=== PATIENT | female | born 1945 | race African-American/Black ===

== ENCOUNTER 2016-10-23 12:03 | Emergency (ER) | payer MEDICARE ==
[~2016-10-23] VITALS: Ht 167.6 cm; Wt 100.0 kg
[~2016-10-23 12:03] MED LIST: IBUP400 PO; LISI-366 PO; MAXZ25 PO; POTA-243 PO; TOPR100T15 PO
[2016-10-23 12:06] VITALS: BP 148/96; PULSE 78; RESP 15; TEMP 98.2; O2SAT 98
[2016-10-23] MEDS ORDERED: SODIUM CHLORIDE 0.9% FLUSH 10 ML FLUSH IV FLUSH PRN (12:30)
[2016-10-23] MEDS ORDERED: ACETAMINOPHEN 500 MG CPLT PO ONE (12:30)
[2016-10-23] MEDS ORDERED: TOPR100T PO (13:07)
[2016-10-23] MEDS ORDERED: LISI40TA PO (13:07)
[2016-10-23] MEDS ORDERED: TRIA37.53 PO (13:07)
[2016-10-23] MEDS ORDERED: POTA-243 PO (13:07)
[2016-10-23] MEDS ORDERED: ASPI81TA81 PO (13:07)
[2016-10-23 13:10] LABS: AUTOMATED NEUTROPHIL # 2.9 TH/MM3 (1.8-7.7); BASOPHIL % 0.6 % (0.0-2.0); EOSINOPHIL # 0.2 TH/MM3 (0-0.4); EOSINOPHIL % 4.6 % (0.0-4.0); HEMO FLAGS DIFF FINAL; LYMPH % 29.8 % (9.0-44.0); LYMPHOCYTE # 1.6 TH/MM3 (1.0-4.8); MEAN CELL VOLUME 98.6 FL (80.0-100.0); MEAN CORPUSCULAR HEMOGLOBIN 32.6 PG (27.0-34.0); MEAN CORPUSCULAR HGB CONC 33.1 % (32.0-36.0); MONO % 9.2 % (0.0-8.0); NEUT % 55.8 % (16.0-70.0); PLATELET COUNT 155 TH/MM3 (150-450); RED BLOOD COUNT 3.55 MIL/MM3 (4.00-5.30); RED CELL DISTRIBUTION WIDTH 12.7 % (11.6-17.2); WHITE BLOOD COUNT 5.2 TH/MM3 (4.0-11.0)
[2016-10-23 13:20] LABS: BACTERIA, URINE RARE /hpf; BLOOD, URINE NEG (NEG); COMMENT (UR) CULT NOT INDICATED; CULTURE IF INDICATED CULT NOT INDICATED; GLUCOSE,URINE NEG (NEG); KETONE, URINE NEG (NEG); MUCUS URINE FEW /lpf (OCC); NITRITE,URINE NEG (NEG); SQUAMOUS EPITHELIAL CELL URINE <1 /hpf (0-5); URINE COLOR YELLOW (YELLW/STRAW)
[2016-10-23 13:35] LABS: ALKALINE PHOSPHATASE 74 U/L (45-117); ALT (GPT) 17 U/L (10-53); ANION GAP 6 MEQ/L (5-15); AST (GOT) 24 U/L (15-37); BICARBONATE 29.4 MEQ/L (21.0-32.0); BLOOD UREA NITROGEN 16 MG/DL (7-18); CHLORIDE 103 MEQ/L (98-107); GLOMERULAR FILTRATION RATE 45 ML/MIN (>89); SODIUM (NA) 138 MEQ/L (136-145); TOTAL BILIRUBIN ADULT 0.5 MG/DL (0.2-1.0)
--- NOTE | 2016-10-23 14:09 | RADRPT ---
EXAM DATE/TIME: 10/23/2016 13:39 [facility] COMPARISON: CT ABDOMEN & PELVIS W CONTRAST, July 14, 2012, 0:27. CT ABDOMEN & PELVIS W/O CONTRAST, September 08, 2015, 11:18. INDICATIONS : Right lower quadrant pain for 5 days now. ORAL CONTRAST: No oral contrast ingested. RADIATION DOSE: 8.41 CTDIvol (mGy) MEDICAL HISTORY : Hypertension. Uterine ca, reflux. SURGICAL HISTORY : Tubal ligation. section.Appendectomy. ENCOUNTER: Initial ACUITY: 1 day PAIN SCALE: 5/10 LOCATION: Right lower quadrant TECHNIQUE: Volumetric scanning of the abdomen and pelvis was performed. Using automated exposure control and ad justment of the mA and/or kV according to patient size, radiation dose was kept as low as reasonably achievable to obtain optimal diagnostic quality images. FINDINGS: CT Abdomen: The liver, spleen, pancreas, kidneys, adrenals are unremarkable. There is no evidence for any appreciable pathological adenopathy, free fluid, or bowel obstruction. Slight degree of somewha t linear irregular opacity is seen in the left lung base mostly consistent with scarring. There is pu nctate calcification in the body of the pancreas chronic and benign not changed. CT pelvis: There is soft tissue prominence in the right lower quadrant adjacent to the external iliac vessels blends in with the adjacent bowel. This could be an area of unopacified loop of bowel, howev er mass or adenopathy is difficult to exclude. There are degenerative changes and possible bulging di scs in the lower lumbosacral spine not adequately characterized. There is a tiny amount of fluid in t he cul-de-sac. CONCLUSION: There is a tiny amount of fluid in the cul-de-sac with soft tissue density adjacent t o the right external iliac vessels may be unopacified loops of bowel, however mass or adenopathy is d ifficult to exclude.. Araceli Layton MD on October 23, 2016 at 14:01 Board Certified Radiologist. This report was verified electronically.
--- NOTE | 2016-10-23 14:38 | PD ---
HPI Chief Complaint: Abdominal Pain Time Seen by Provider: 12:20 Travel History International Travel<30 days: No Contact w/Intl Traveler<30days: No Traveled to known affect area: No History of Present Illness HPI Patient is a pleasant 71-year-old female presents emergency department complaint abdominal pain. Patient states she has had 5 days of right lower quadrant abdominal pain. No nausea vomiting or diarrhea. Pain is mild, crampy , intermittent. She's had a previous appendectomy and other abdominal surgeries that she does not recall if the top of her head. Patient denies any urinary symptoms, fevers or chills. PFSH Past Medical History Arthritis: Yes Asthma: Yes Heart Rhythm Problems: No Cancer: Yes (Uterine ) Cardiac Catheterization: No Cardiovascular Problems: Yes (HTN) High Cholesterol: Yes Congestive Heart Failure: No Diabetes: No Diminished Hearing: No Endocrine: No GERD: Yes Genitourinary: No Hepatitis: No Hiatal Hernia: No Hypertension: Yes Immune Disorder: No Medical other: Yes (ARTHRITIS) Musculoskeletal: Yes (arthritis in back ) Neurologic: Yes (BELLS PALSY) Psychiatric: No Reproductive: No Respiratory: No Immunizations Current: No Thyroid Disease: No Menopausal: Yes : 4 Para: 4 Miscarriage: 0 : 0 Dilation and Curettage (D&C): Yes Tubal Ligation: Yes Past Surgical History Abdominal Surgery: Yes (APPY) Appendectomy: Yes Body Medical Devices: none Cardiac Surgery: No Section: Yes (X1) Coronary Artery Bypass Graft: No Ear Surgery: No Endocrine Surgery: No Eye Surgery: No Genitourinary Surgery: No Gynecologic Surgery: Yes (hysterectomy,CSECTION,D&C) Hysterectomy: Yes Joint Replacement: No Oral Surgery: No Pacemaker: No Thoracic Surgery: No Other Surgery: Yes Social History Alcohol Use: No Tobacco Use: No Substance Use: No Allergies-Medications (Allergen,Severity, Reaction): Coded Allergies: Adhesives (Verified Allergy, Severe, RASH, 10/23/16) Codeine (Verified Allergy, Severe, RASH, 10/23/16) Uncoded Allergies: plastic (Adverse Reaction, Severe, Rash, 04/14/16) dressings Reported Meds & Prescriptions Reported Meds & Active Scripts Active Reported Triamterene-Hydrochlorothiazide 37.5-25 Mg Cap 1 Cap PO DAILY Aspir-81 (Aspirin) 81 Mg Tabdr 81 Mg PO DAILY Klor-Con 10 (Potassium Chloride) 10 Meq Tab 10 Meq PO BID Toprol XL (Metoprolol Succinate) 100 Mg Tab 100 Mg PO DAILY Lisinopril 40 Mg Tab 40 Mg PO DAILY Review of Systems Except as stated in HPI: all other systems reviewed are Neg Physical Exam Narrative GENERAL: Pleasant elderly female in no acute distress SKIN: Focused skin assessment warm/dry. HEAD: Normocephalic. EYES: No scleral icterus. No injection or drainage. ENT: No nasal bleeding or discharge. Mucous membranes pink and moist. NECK: Supple CARDIOVASCULAR: Regular rate and rhythm. RESPIRATORY: No accessory muscle use. GASTROINTESTINAL: Abdomen soft, all right lower quadrant abdominal tenderness to palpation around the lateral aspect of previous scar. No palpable mass. No rebound or guarding. No hernia. MUSCULOSKELETAL: Normal gait NEUROLOGICAL: Awake and alert. Normal speech. PSYCHIATRIC: Appropriate mood and affect; insight and judgment normal. Data Data Last Documented VS Vital Signs Date Time Temp Pulse Resp B/P Pulse Ox O2 Delivery O2 Flow Rate FiO2 10/23/16 12:06 98.2 78 15 148/96 98 Orders Basic Metabolic Panel (Bmp) (10/23/16 12:24) Complete Blood Count With Diff (10/23/16 12:24) Comprehensive Metabolic Panel (10/23/16 12:24) Urinalysis - C+S If Indicated (10/23/16 12:24) Ct Abd/Pel W/O Iv Contrast (10/23/16 12:24) Iv Access Insert/Monitor (10/23/16 12:24) Sodium Chloride 0.9% Flush (Ns Flush) (10/23/16 12:30) Acetaminophen (Tylenol) (10/23/16 12:30) Labs Laboratory Tests Test 10/23/16 10/23/16 12:42 12:51 White Blood Count 5.2 TH/MM3 Red Blood Count 3.55 MIL/MM3 Hemoglobin 11.6 GM/DL Hematocrit 35.0 % Mean Corpuscular Volume 98.6 FL Mean Corpuscular Hemoglobin 32.6 PG Mean Corpuscular Hemoglobin 33.1 % Concent Red Cell Distribution Width 12.7 % Platelet Count 155 TH/MM3 Mean Platelet Volume 10.2 FL Neutrophils (%) (Auto) 55.8 % Lymphocytes (%) (Auto) 29.8 % Monocytes (%) (Auto) 9.2 % Eosinophils (%) (Auto) 4.6 % Basophils (%) (Auto) 0.6 % Neutrophils # (Auto) 2.9 TH/MM3 Lymphocytes # (Auto) 1.6 TH/MM3 Monocytes # (Auto) 0.5 TH/MM3 Eosinophils # (Auto) 0.2 TH/MM3 Basophils # (Auto) 0.0 TH/MM3 CBC Comment DIFF FINAL Differential Comment Sodium Level 138 MEQ/L Potassium Level 4.0 MEQ/L Chloride Level 103 MEQ/L Carbon Dioxide Level 29.4 MEQ/L Anion Gap 6 MEQ/L Blood Urea Nitrogen 16 MG/DL Creatinine 1.41 MG/DL Estimat Glomerular Filtration 45 ML/MIN Rate Random Glucose 75 MG/DL Calcium Level 9.1 MG/DL Total Bilirubin 0.5 MG/DL Aspartate Amino Transf 24 U/L (AST/SGOT) Alanine Aminotransferase 17 U/L (ALT/SGPT) Alkaline Phosphatase 74 U/L Total Protein 7.5 GM/DL Albumin 3.3 GM/DL Urine Color YELLOW Urine Turbidity CLEAR Urine pH 7.0 Urine Specific [place] 1.013 Urine Protein NEG mg/dL Urine Glucose (UA) NEG mg/dL Urine Ketones NEG mg/dL Urine Occult Blood NEG Urine Nitrite NEG Urine Bilirubin NEG Urine Urobilinogen LESS THAN 2.0 MG/DL Urine Leukocyte Esterase NEG Urine RBC LESS THAN 1 /hpf Urine WBC 1 /hpf Urine Squamous Epithelial <1 /hpf Cells Urine Bacteria RARE /hpf Urine Mucus FEW /lpf Microscopic Urinalysis Comment CULT NOT INDICATED MDM Medical Decision Making Medical Screen Exam Complete: Yes Emergency Medical Condition: Yes Medical Record Reviewed: Yes Differential Diagnosis 71-year-old female here with complaint of right lower quadrant abdominal pain 5 days. Differential includes abdominal wall strain, hernia, colitis, right sided diverticulitis, ureterolithiasis, UTI. She's had a previous appendectomy. Narrative Course Patient placed on monitor, IV established and blood obtained. CBC, BMP, urinalysis unremarkable. CT abdomen and pelvis with a tiny amount of trace fluid within the cul-de-sac. Soft tissue density adjacent to the right external iliac vessels, maybe on a unopacified loops of bowel however mass or adenopathy cannot be excluded. Patient will be encouraged to follow up with her primary care provider the above findings and will be discharged home. Diagnosis Primary Impression: Abdominal pain Qualified Code: R10.31 - Right lower quadrant abdominal pain Referrals: KYARA TONY M.D. call for appointment Patient Instructions: Abdominal Pain (ED), General Instructions Additional Instructions: Follow-up with primary care provider for the findings found on CT today. Med/Other Pt SpecificInfo: No Change to Meds Disposition: 01 DISCHARGE HOME Condition: Stable Jenelle Ocasio MD Oct 23, 2016 14:38
[2016-10-23 14:41] VITALS: BP 155/72; PULSE 57; RESP 18; O2SAT 98
== END 2016-10-23 15:01 | disposition home or self-care (01) ==
LOC: NEPD 12:03
DX: R10.31 Right lower quadrant pain (principal)
CPT/HCPCS: 74176; 80053; 81001; 85025

== ENCOUNTER 2017-05-01 09:09 | Emergency (ER) | payer MEDICARE ==
[~2017-05-01] VITALS: Ht 170.2 cm; Wt 69.0 kg
[~2017-05-01 09:09] MED LIST changes: +ASPI81TA81 PO; -IBUP400 PO; +KLOR10TA PO; -LISI-366 PO; +LISI40TA PO; -MAXZ25 PO; -POTA-243 PO; +TOPR100T PO; -TOPR100T15 PO; +TRIA37.53 PO
[2017-05-01 09:17] VITALS: BP 155/74; PULSE 74; RESP 16; TEMP 98.4; O2SAT 98
[2017-05-01 09:22] VITALS: BP 155/74; PULSE 23; RESP 16; O2SAT 98
[2017-05-01] MEDS ORDERED: SODIUM CHLORIDE 0.9% FLUSH 10 ML FLUSH IVF PRN (09:30)
[2017-05-01] MEDS ORDERED: ASPIRIN 81 MG CHEW TAB PO ONE (09:30)
--- NOTE | 2017-05-01 09:39 | PD ---
HPI . Palpitations Chief Complaint: Cardiac Complaint Time Seen by Provider: 09:34 Travel History International Travel<30 days: No Contact w/Intl Traveler<30days: No Traveled to known affect area: No History of Present Illness HPI This patient presents with a chief complaint of palpitations. She had an episode of palpitations last night about 7 or 8 PM. The episode was very brief. She felt fine following the episode. She states that she took one of her metoprolol and that the episode stopped shortly after she took the metoprolol. The palpitations recurred this morning and lasted for about 5 minutes. She states that this episode of palpitations stopped immediately after she took an aspirin. She reports previous similar episodes. She states that the episodes are very infrequent and that the last episode was probably 2 years ago. She does not know what might cause the episodes. The episodes are very mild and brief. This patient is very concerned because she has run out of her metoprolol. PFSH Past Medical History Arthritis: Yes Asthma: Yes Heart Rhythm Problems: No Cancer: Yes (Uterine ) Cardiac Catheterization: No Cardiovascular Problems: Yes (HTN) High Cholesterol: Yes Congestive Heart Failure: No Diabetes: No Diminished Hearing: No Endocrine: No GERD: Yes Genitourinary: No Hepatitis: No Hiatal Hernia: No Hypertension: Yes Immune Disorder: No Medical other: Yes (ARTHRITIS) Musculoskeletal: Yes (arthritis in back ) Neurologic: Yes (BELLS PALSY) Psychiatric: No Reproductive: No Respiratory: No Immunizations Current: No Thyroid Disease: No Influenza Vaccination: No ?: Not Menopausal: Yes : 4 Para: 4 Miscarriage: 0 : 0 Dilation and Curettage (D&C): Yes Tubal Ligation: Yes Past Surgical History Abdominal Surgery: Yes (APPY) Appendectomy: Yes Body Medical Devices: none Cardiac Surgery: No Section: Yes (X1) Coronary Artery Bypass Graft: No Ear Surgery: No Endocrine Surgery: No Eye Surgery: No Genitourinary Surgery: No Gynecologic Surgery: Yes (hysterectomy,CSECTION,D&C) Hysterectomy: Yes Joint Replacement: No Oral Surgery: No Pacemaker: No Thoracic Surgery: No Other Surgery: Yes Social History Alcohol Use: No Tobacco Use: No Substance Use: No Allergies-Medications (Allergen,Severity, Reaction): Coded Allergies: adhesive (Unverified Allergy, Severe, RASH, 05/01/17) codeine (Unverified Allergy, Severe, RASH, 05/01/17) Uncoded Allergies: plastic (Adverse Reaction, Severe, Rash, 04/14/16) dressings Reported Meds & Prescriptions Reported Meds & Active Scripts Active Toprol XL (Metoprolol Succinate) 100 Mg Tab 100 Mg PO DAILY Reported Triamterene-Hydrochlorothiazide 37.5-25 Mg Cap 1 Cap PO DAILY Aspir-81 (Aspirin) 81 Mg Tabdr 81 Mg PO DAILY Klor-Con 10 (Potassium Chloride) 10 Meq Tab 10 Meq PO BID Lisinopril 40 Mg Tab 40 Mg PO DAILY Review of Systems Except as stated in HPI: all other systems reviewed are Neg HENT: No: Lightheadedness Cardiovascular: Positive: Palpitations, No: Chest Pain or Discomfort Respiratory: No: Shortness of Breath Gastrointestinal: No: Nausea, Vomiting Psychiatric: Positive: Anxiety Physical Exam Narrative GENERAL: Awake and alert. Tearful. SKIN: warm/dry. HEAD: Normocephalic. Atraumatic. EYES: Pupils equal and round. No scleral icterus. No injection or drainage. ENT: No nasal bleeding or discharge. Mucous membranes pink and moist. NECK: Trachea midline. Full range of motion without pain.. CARDIOVASCULAR: Regular rate and rhythm. Heart sounds are normal. RESPIRATORY: No accessory muscle use. Clear to auscultation. Breath sounds equal bilaterally. GASTROINTESTINAL: Abdomen soft. Nontender. Bowel sounds present. Nondistended. MUSCULOSKELETAL: No obvious deformities. NEUROLOGICAL: Awake and alert. No obvious cranial nerve deficits. Motor grossly within normal limits. Normal speech. PSYCHIATRIC: Appropriate mood and affect; insight and judgment normal. Data Data Last Documented VS Vital Signs Date Time Temp Pulse Resp B/P (MAP) Pulse Ox O2 Delivery O2 Flow Rate FiO2 05/01/17 09:22 23 16 155/74 (101) 98 Room Air 05/01/17 09:17 98.4 Orders Orders Electrocardiogram (05/01/17 09:16) Basic Metabolic Panel (Bmp) (05/01/17 09:16) Complete Blood Count With Diff (05/01/17 09:16) Magnesium (Mg) (05/01/17 09:16) Prothrombin Time / Inr (Pt) (05/01/17 09:16) Act Partial Throm Time (Ptt) (05/01/17 09:16) Troponin I (05/01/17 09:16) Chest, Single Ap (05/01/17 09:16) Ecg Monitoring (05/01/17 09:16) Oximetry (05/01/17 09:16) Aspirin Chew (Aspirin Chew) (05/01/17 09:30) Sodium Chloride 0.9% Flush (Ns Flush) (05/01/17 09:30) Lorazepam Inj (Ativan Inj) (05/01/17 09:45) Metoprolol Succinate Er (Toprol Xl) (05/01/17 10:00) Lorazepam Inj (Ativan Inj) (05/01/17 10:30) Labs Laboratory Tests Test 05/01/17 09:25 White Blood Count 5.7 TH/MM3 Red Blood Count 3.56 MIL/MM3 Hemoglobin 11.8 GM/DL Hematocrit 35.2 % Mean Corpuscular Volume 99.0 FL Mean Corpuscular Hemoglobin 33.3 PG Mean Corpuscular Hemoglobin Concent 33.6 % Red Cell Distribution Width 13.0 % Platelet Count 149 TH/MM3 Mean Platelet Volume 10.6 FL Neutrophils (%) (Auto) 56.9 % Lymphocytes (%) (Auto) 27.8 % Monocytes (%) (Auto) 5.9 % Eosinophils (%) (Auto) 8.1 % Basophils (%) (Auto) 1.3 % Neutrophils # (Auto) 3.3 TH/MM3 Lymphocytes # (Auto) 1.6 TH/MM3 Monocytes # (Auto) 0.3 TH/MM3 Eosinophils # (Auto) 0.5 TH/MM3 Basophils # (Auto) 0.1 TH/MM3 CBC Comment DIFF FINAL Differential Comment Blood Urea Nitrogen 16 MG/DL Creatinine 1.47 MG/DL Random Glucose 94 MG/DL Calcium Level 9.6 MG/DL Magnesium Level 2.0 MG/DL Sodium Level 140 MEQ/L Potassium Level 3.2 MEQ/L Chloride Level 105 MEQ/L Carbon Dioxide Level 28.0 MEQ/L Anion Gap 7 MEQ/L Estimat Glomerular Filtration Rate 43 ML/MIN Troponin I LESS THAN 0.02 NG/ML MDM Medical Decision Making Medical Screen Exam Complete: Yes Emergency Medical Condition: Yes Medical Record Reviewed: Yes (past medical history of hypertension.) Interpretation(s) EKG has a lot of artifact. Sinus rhythm. No ST segment elevation or depression. Differential Diagnosis Differential diagnosis of palpitations includes but is not limited to anxiety, SVT, aVF with RVR, VT, sinus tachycardia, PVCs Narrative Course This patient presents with 2 brief episodes of palpitations, one last night and one this morning. She is currently in a sinus rhythm. She seems very anxious. CBC & BMP Diagram 05/01/17 09:25 Calcium Level 9.6, Magnesium Level 2.0 trop < 0.02 This patient has been in a normal sinus rhythm here. She will be discharged home. Diagnosis Primary Impression: Palpitations Patient Instructions: General Instructions, Heart Palpitations (DC) Med/Other Pt SpecificInfo: Prescription(s) given Scripts Metoprolol Succinate ER 24 HR (Toprol XL) 100 Mg Tab 100 MG PO DAILY, #30 TAB 0 Refills Prov: Stacie Matt MD 05/01/17 Disposition: 01 DISCHARGE HOME Condition: Stable Stacie Matt MD May 01, 2017 09:39
[2017-05-01 09:41] LABS: AUTOMATED NEUTROPHIL # 3.3 TH/MM3 (1.8-7.7); BASOPHIL # 0.1 TH/MM3 (0-0.2); BASOPHIL % 1.3 % (0.0-2.0); EOSINOPHIL # 0.5 TH/MM3 (0-0.4); EOSINOPHIL % 8.1 % (0.0-4.0); HEMATOCRIT 35.2 % (35.0-46.0); HEMOGLOBIN 11.8 GM/DL (11.6-15.3); LYMPH % 27.8 % (9.0-44.0); LYMPHOCYTE # 1.6 TH/MM3 (1.0-4.8); MEAN CORPUSCULAR HEMOGLOBIN 33.3 PG (27.0-34.0); MEAN CORPUSCULAR HGB CONC 33.6 % (32.0-36.0); MEAN PLATELET VOLUME 10.6 FL (7.0-11.0); MONO % 5.9 % (0.0-8.0); MONOCYTE # 0.3 TH/MM3 (0-0.9); NEUT % 56.9 % (16.0-70.0); PLATELET COUNT 149 TH/MM3 (150-450); RED BLOOD COUNT 3.56 MIL/MM3 (4.00-5.30); WHITE BLOOD COUNT 5.7 TH/MM3 (4.0-11.0)
[2017-05-01] MEDS ORDERED: LORazepam 2 MG/ML VIAL IV PUSH ONE (09:45)
[2017-05-01 09:50] LABS: BLOOD UREA NITROGEN 16 MG/DL (7-18); CALCIUM 9.6 MG/DL (8.5-10.1); CHLORIDE 105 MEQ/L (98-107); CREATININE 1.47 MG/DL (0.50-1.00); GLOMERULAR FILTRATION RATE 43 ML/MIN (>89); GLUCOSE,RANDOM 94 MG/DL (74-106); SODIUM (NA) 140 MEQ/L (136-145)
[2017-05-01] MEDS ORDERED: TOPR100T PO (09:50)
--- NOTE | 2017-05-01 09:52 | RADRPT ---
EXAM DATE/TIME: 05/01/2017 09:31 [facility] COMPARISON: CHEST SINGLE AP, July 18, 2015, 21:38. INDICATIONS : Heart palpitations, chest pain since last night. MEDICAL HISTORY : Hypertension. Uterine cancer, reflux. SURGICAL HISTORY : Tubal ligation. section. Appendectomy. ENCOUNTER: Initial ACUITY: 1 day PAIN SCORE: 0/10 LOCATION: Bilateral chest FINDINGS: Left basilar atelectasis is noted. The heart is stable. The pulmonary vascular pattern is normal. The lungs are otherwise clear. Degenerative changes and scoliosis of the thoracic spine are noted. Degenerative changes are also noted involving the shoulders bilaterally. CONCLUSION: 1. Left basilar atelectasis. 2. No alveolar consolidation or pulmonary edema. 3. Degenerative changes and scoliosis of the thoracic spine. Axel Pro MD on May 01, 2017 at 9:38 Board Certified Radiologist. This report was verified electronically.
[2017-05-01 09:55] LABS: TROPONIN I LESS THAN 0.02 NG/ML (0.02-0.05)
[2017-05-01] MEDS ORDERED: METOPROLOL SUCCINATE 50 MG EXTENDED RELEASE TAB PO ONE (10:00)
[2017-05-01 10:29] VITALS: BP 166/75; PULSE 77; RESP 16; O2SAT 100
[2017-05-01] MEDS ORDERED: LORazepam 2 MG/ML VIAL IM ONE (10:30)
--- NOTE | 2017-05-02 20:58 | EKG ---
Date Performed: 05/01/2017 Time Performed: 09:25:16 PTAGE: 71 years EKG: Sinus rhythm Electrical interferences NORMAL ECG NO PREVIOUS TRACING DOCTOR: Hao Garibay Interpretating Date/Time 05/02/2017 20:51:57
== END 2017-05-01 11:00 | disposition home or self-care (01) ==
LOC: NEPC 09:09
DX: R00.2 Palpitations (principal); M19.90 Unspecified osteoarthritis, unspecified site; J45.909 Unspecified asthma, uncomplicated; I10 Essential (primary) hypertension; E78.00 Pure hypercholesterolemia, unspecified; K21.9 Gastro-esophageal reflux disease without esophagitis; Z79.82 Long term (current) use of aspirin; Z79.899 Other long term (current) drug therapy; Z88.5 Allergy status to narcotic agent
CPT/HCPCS: 71010; 80048; 83735; 84484; 85025; 93005; 96372; 99285; J2060

== ENCOUNTER 2017-07-04 10:27 | Emergency (ER) | payer MEDICARE ==
[~2017-07-04] VITALS: Ht 170.2 cm; Wt 89.2 kg
[2017-07-04 10:29] VITALS: BP 173/89; PULSE 89; RESP 16; TEMP 97.7; O2SAT 98
[2017-07-04] MEDS ORDERED: LISI40TA PO (11:07)
[2017-07-04] MEDS ORDERED: METO1TAB43 PO (11:07)
[2017-07-04] MEDS ORDERED: TRIA37.53 PO (11:07)
[2017-07-04] MEDS ORDERED: K-TA10TA PO (11:07)
--- NOTE | 2017-07-04 11:07 | PD ---
HPI Chief Complaint: Cold / Flu Symptoms Time Seen by Provider: 10:48 Travel History International Travel<30 days: No Contact w/Intl Traveler<30days: No Traveled to known affect area: No History of Present Illness HPI 72-year-old female presents to the emergency Department with complaint of feeling like there is something stuck in her throat and is having difficulty clearing her throat. Denies throat pain, difficulty swallowing, unusual drooling. She did wake up this morning with her mouth full of "phlegm." She states she coughed out the phlegm and there was a little bit of blood in her tissue, which has not continued. Denies chest pain, shortness of breath. She denies nasal congestion, ear pain, fever, vomiting. Denies airway edema. Took some cough medicine with some relief of symptoms. Symptoms are mild in severity. It is also requesting medication refills on her medications that she had filled yesterday and cannot find them. She was at her sister's house yesterday and the medications were in her purse. When she went to take them this morning they were not there. Has no other medical complaints. Dr. Smith is primary care provider. History of hypertension. No other modifying factors or associated signs and symptoms. PFSH Past Medical History Arthritis: Yes Asthma: Yes Heart Rhythm Problems: No Cancer: Yes (Uterine ) Cardiac Catheterization: No Cardiovascular Problems: Yes (HTN) High Cholesterol: Yes Congestive Heart Failure: No Diabetes: No Diminished Hearing: No Endocrine: No GERD: Yes Genitourinary: No Hepatitis: No Hiatal Hernia: No Hypertension: Yes Immune Disorder: No Musculoskeletal: Yes (arthritis in back ) Neurologic: Yes (BELLS PALSY) Psychiatric: No Reproductive: No Respiratory: No Immunizations Current: No Thyroid Disease: No ?: Not Menopausal: Yes : 4 Para: 4 Miscarriage: 0 : 0 Dilation and Curettage (D&C): Yes Tubal Ligation: Yes Past Surgical History Abdominal Surgery: Yes (APPY) Appendectomy: Yes Body Medical Devices: none Cardiac Surgery: No Section: Yes (X1) Coronary Artery Bypass Graft: No Ear Surgery: No Endocrine Surgery: No Eye Surgery: No Genitourinary Surgery: No Gynecologic Surgery: Yes (hysterectomy,CSECTION,D&C) Hysterectomy: Yes Joint Replacement: No Oral Surgery: No Pacemaker: No Thoracic Surgery: No Other Surgery: Yes Social History Alcohol Use: No Tobacco Use: No Substance Use: No Allergies-Medications (Allergen,Severity, Reaction): Coded Allergies: adhesive (Unverified Allergy, Severe, RASH, 07/04/17) codeine (Unverified Allergy, Severe, RASH, 07/04/17) Uncoded Allergies: plastic (Adverse Reaction, Severe, Rash, 04/14/16) dressings Reported Meds & Prescriptions Reported Meds & Active Scripts Active Diphenhydramine (Diphenhydramine HCl) 25 Mg Cap 25 Mg PO HS 3 Days [place] Nasal [place] (Sodium Chloride) 0.65% [place] 2 [place] EACH NARE DIRECTED PRN K-Tab (Potassium Chloride) 10 Meq Tab 10 Meq PO BID Lisinopril 40 Mg Tab 40 Mg PO DAILY Triamterene-Hydrochlorothiazide 37.5-25 Mg Cap 1 Cap PO DAILY Metoprolol Succinate ER 24 HR (Metoprolol Succinate) 100 Mg Tab 100 Mg PO DAILY Toprol XL (Metoprolol Succinate) 100 Mg Tab 100 Mg PO DAILY Reported Triamterene-Hydrochlorothiazide 37.5-25 Mg Cap 1 Cap PO DAILY Klor-Con 10 (Potassium Chloride) 10 Meq Tab 10 Meq PO BID Lisinopril 40 Mg Tab 40 Mg PO DAILY Review of Systems Except as stated in HPI: all other systems reviewed are Neg Physical Exam Narrative GENERAL: Well-nourished, well-developed elderly, black female patient, in no acute distress; afebrile, nontoxic-appearing SKIN: Warm and dry. No rash. HEAD: Atraumatic. Normocephalic. EYES: Pupils equal and round. No scleral icterus. No injection or drainage. ENT: Mucosa pink and moist. No erythema or exudates. No uvular edema. No uvular , palatal, or tonsillar deviation. Airway patent. Spitting out clear phlegm on to tissue. EARS: Bilateral pinnae and external canals appear within normal limits. Bilateral tympanic membranes without erythema, dullness or perforation. NECK: Trachea midline. No edema. No lymphadenopathy. CARDIOVASCULAR: Regular rate and rhythm. No murmur appreciated. RESPIRATORY: No accessory muscle use. Clear to auscultation. Breath sounds equal bilaterally. No retractions or tachypnea. GASTROINTESTINAL: Rounded. MUSCULOSKELETAL: No obvious deformities. No clubbing. No cyanosis. No edema. NEUROLOGICAL: Awake and alert. Oriented 3. No obvious cranial nerve deficits. Motor grossly within normal limits. Normal speech. Moves all extremities. 5/5 strength to all extremities. PSYCHIATRIC: Appropriate mood and affect; insight and judgment normal. Data Data Last Documented VS Vital Signs Date Time Temp Pulse Resp B/P (MAP) Pulse Ox O2 Delivery O2 Flow Rate FiO2 07/04/17 10:29 97.7 89 16 173/89 (117) 98 Room Air Orders Orders Soft Tissue Neck (07/04/17 ) Ed Discharge Order (07/04/17 12:11) Metoprolol Succinate Er (Toprol Xl) (07/04/17 12:30) Potassium Chloride (Kcl) (07/04/17 12:30) Triamterene-Hctz 37.5-25 Mg (Dyazide 37. (07/04/17 12:30) MDM Medical Decision Making Medical Screen Exam Complete: Yes Emergency Medical Condition: Yes Medical Record Reviewed: Yes Differential Diagnosis Sensation of foreign body in the throat, postnasal drip, throat irritation, medication refill Narrative Course 72-year-old female with sensation of foreign body in her throat since this morning. Swallow evaluation done at bedside and patient was able to swallow water without choking, regurgitation, coughing. Oropharynx is unremarkable. I discussed patient with Dr. Cerda and he recommends soft tissue x-ray of the neck and he will evaluate the patient. Orders entered. 1206: Dr. Cerda evaluated the patient and recommends nasal spray and Benadryl at bedtime 3 nights. Soft tissue neck x-ray concludes: Soft Tissue Neck X-Ray 07/04/17 0000 Signed Impressions: Service Date/Time: Tuesday, July 04, 2017 11:20 - CONCLUSION: No foreign bodies seen. There is very exuberant anterior marginal osteophytes throughout the cervical spine likely related to DISH. Jono Santillan MD X-ray findings discussed with the patient. Patient provided medication refills for her lost medications. Her morning medications were ordered and administered prior to discharge. Benadryl and [place] nasal spray prescribed for home. Instructed patient to follow up with primary care provider. Patient verbalizes understanding and agreement with treatment plan. Patient is medically cleared and stable for discharge. Discussed reasons to return to the emergency department. Patient agrees with treatment plan. The patients vital signs are stable and the patient is stable for outpatient follow-up and treatment. Patient discharged home, stable and in no acute distress. Diagnosis Primary Impression: Sensation of foreign body in throat Additional Impression: Medication refill Referrals: Primary Care Physician Patient Instructions: General Instructions, Medication Refill, ED Additional Instructions: [place] nasal spray as directed Benadryl as directed at bedtime Follow-up with primary care provider Return to the emergency department immediately with worsening of symptoms Med/Other Pt SpecificInfo: Prescription(s) given Scripts Diphenhydramine (Diphenhydramine) 25 Mg Cap 25 MG PO HS for 3 Days, CAP 0 Refills Prov: Jasmyne Sawant Pankaj SHAFERP 07/04/17 Saline Nasal ([place] Nasal [place]) 0.65% [place] 2 SPRAY EACH NARE DIRECTED Y for NASAL CONGESTION, #1 BOTTLE 0 Refills Prov: JeseJasmyneisi PICKETT 07/04/17 Potassium Chloride ER (K-Tab) 10 Meq Tab 10 MEQ PO BID for Electrolyte Replacement, #60 TAB 0 Refills Prov: EdinsonJasmyne snowden 07/04/17 Lisinopril (Lisinopril) 40 Mg Tab 40 MG PO DAILY for Blood Pressure Management, #30 TAB 0 Refills Prov: Jasmyne Sawant Pankaj SHAFERP 07/04/17 Triamterene-Hydrochlorothiazide (Triamterene-Hydrochlorothiazide) 37.5-25 Mg Cap 1 CAP PO DAILY, #30 CAP 0 Refills Prov: Jasmyne Sawant Pankaj SHAFERP 07/04/17 Metoprolol Succinate ER 24 HR (Metoprolol Succinate ER 24 HR) 100 Mg Tab 100 MG PO DAILY, #30 TAB 0 Refills Prov: Finoa Sawantisi SHAFERP 07/04/17 Disposition: 01 DISCHARGE HOME Condition: Stable Jasmyne Sawant Pankaj PICKETT Jul 04, 2017 11:07
--- NOTE | 2017-07-04 11:41 | RADRPT ---
EXAM DATE/TIME: 07/04/2017 11:20 [facility] COMPARISON: No previous studies available for comparison. INDICATIONS : Throat pain this morning. Patient states she feels like something is stuck in her throat. MEDICAL HISTORY : None. SURGICAL HISTORY : None. ENCOUNTER: Initial ACUITY: 1 day PAIN SCORE: 2/10 LOCATION: throat. FINDINGS: Two view examination of the soft tissues of the neck demonstrates the hypopharyngeal airway to have a grossly normal configuration. The trachea is midline. No radiopaque foreign bodies are seen. There is very prominent anterior marginal osteophytes seen throughout the cervical spine extending up to 1.9 cm anterior to the anterior vertebral body margins. This likely related to exuberant DISH. Th anna marie osteophytes can cause impressions on the posterior hypopharynx and upper esophagus. CONCLUSION: No foreign bodies seen. There is very exuberant anterior marginal osteophytes throughout the cervical spine likely related to DISH. Jono Santillan MD on July 04, 2017 at 11:37 Board Certified Radiologist. This report was verified electronically.
--- NOTE | 2017-07-04 12:05 | PD ---
Data Data Last Documented VS Vital Signs Date Time Temp Pulse Resp B/P (MAP) Pulse Ox O2 Delivery O2 Flow Rate FiO2 07/04/17 12:58 07/04/17 10:29 97.7 89 16 98 Room Air Orders Orders Soft Tissue Neck (07/04/17 ) Ed Discharge Order (07/04/17 12:11) Metoprolol Succinate Er (Toprol Xl) (07/04/17 12:30) Potassium Chloride (Kcl) (07/04/17 12:30) Triamterene-Hctz 37.5-25 Mg (Dyazide 37. (07/04/17 12:30) MDM Medical Record Reviewed: Yes Supervised Visit with FELIX: Yes Narrative Course I, Dr. Cerda, have reviewed the advance practice practitioner's documentation and am in agreement, met with the patient face to face, made the diagnosis, and the medical decision making was done by me. *My assessment and Findings: At home remedies discussed. Patient agreeable with plan. Patient's ready for discharge. Diagnosis Primary Impression: Medication refill Scripts Diphenhydramine (Diphenhydramine) 25 Mg Cap 25 MG PO HS for 3 Days, CAP 0 Refills Prov: Jasmyne Sawant Pankaj SHAFERP 07/04/17 Saline Nasal ([place] Nasal [place]) 0.65% [place] 2 SPRAY EACH NARE DIRECTED Y for NASAL CONGESTION, #1 BOTTLE 0 Refills Prov: Jasmyne Sawant MOMD TEACHER 07/04/17 Potassium Chloride ER (K-Tab) 10 Meq Tab 10 MEQ PO BID for Electrolyte Replacement, #60 TAB 0 Refills Prov: Jasmyne Sawant Pankaj SHAFERP 07/04/17 Lisinopril (Lisinopril) 40 Mg Tab 40 MG PO DAILY for Blood Pressure Management, #30 TAB 0 Refills Prov: Jasmyne Sawant Pankaj SHAFERP 07/04/17 Triamterene-Hydrochlorothiazide (Triamterene-Hydrochlorothiazide) 37.5-25 Mg Cap 1 CAP PO DAILY, #30 CAP 0 Refills Prov: Jasmyne Sawant Pankaj MOM[employer] TEACHER 07/04/17 Metoprolol Succinate ER 24 HR (Metoprolol Succinate ER 24 HR) 100 Mg Tab 100 MG PO DAILY, #30 TAB 0 Refills Prov: Fiona Sawantisi Lira MOMD TEACHER 07/04/17 Disposition: 01 DISCHARGE HOME Condition: Stable Fredy Creda MD Jul 04, 2017 12:05
[2017-07-04] MEDS ORDERED: OCEA0.653 EACH NARE (12:09)
[2017-07-04] MEDS ORDERED: DIPH25CA PO (12:09)
[2017-07-04] MEDS ORDERED: TRIAMTERENE/HCTZ 37.5 MG/25 MG CAP PO ONE (12:30)
[2017-07-04] MEDS ORDERED: POTASSIUM CHLORIDE 10 MEQ CONTROLLED RELEASE TAB PO ONE (12:30)
[2017-07-04] MEDS ORDERED: METOPROLOL SUCCINATE 50 MG EXTENDED RELEASE TAB PO ONE (12:30)
== END 2017-07-04 12:59 | disposition home or self-care (01) ==
LOC: NEPD 10:27
DX: Z76.0 Encounter for issue of repeat prescription (principal); R09.89 Other specified symptoms and signs involving the circulatory and respiratory systems; I10 Essential (primary) hypertension; M19.90 Unspecified osteoarthritis, unspecified site; J45.909 Unspecified asthma, uncomplicated; E78.00 Pure hypercholesterolemia, unspecified; K21.9 Gastro-esophageal reflux disease without esophagitis; Z79.899 Other long term (current) drug therapy; Z88.5 Allergy status to narcotic agent
CPT/HCPCS: 70360; 99283

== ENCOUNTER 2017-07-09 17:15 | Inpatient (IN) | payer MEDICARE ==
[~2017-07-09] VITALS: Ht 170.2 cm; Wt 65.0 kg
[~2017-07-09 17:15] MED LIST changes: -ASPI81TA81 PO; +DIPH25CA PO; +K-TA10TA PO; +METO1TAB43 PO; +OCEA0.653 EACH NARE
[2017-07-09 17:27] VITALS: BP 118/57; PULSE 67; RESP 16; TEMP 97.6; O2SAT 98
[2017-07-09] MEDS ORDERED: SODIUM CHLOR 0.9% 1000 ML INJ 1,000 ML IV ONE (18:02)
--- NOTE | 2017-07-09 18:08 | PD ---
HPI Chief Complaint: Syncope/Near-Syncope Time Seen by Provider: 17:42 Travel History International Travel<30 days: No Contact w/Intl Traveler<30days: No Traveled to known affect area: No History of Present Illness HPI 72-year-old female presents via EMS for evaluation. She reports that prior to arrival he is walking on the hallway in her home when she felt lightheaded and dizzy. She reports that the next thing she remembers she was on the ground but she is uncertain if she truly had a syncopal event or just a presyncopal event. Regardless, the patient is currently complaining of abdominal pain and diarrhea which started this afternoon. She reports generalized abdominal crampy pain which is constant, associated 2 episodes of diarrhea. She denies chest pain or shortness of breath, palpitations, blurred vision, denies fevers or chills, flank pain, dysuria. She has no other complaints at this time. PFSH Past Medical History Arthritis: Yes Asthma: Yes Heart Rhythm Problems: No Cancer: Yes (Uterine ) Cardiac Catheterization: No Cardiovascular Problems: Yes (HTN) High Cholesterol: Yes Congestive Heart Failure: No Diabetes: No Diminished Hearing: No Endocrine: No GERD: Yes Genitourinary: No Hepatitis: No Hiatal Hernia: No Hypertension: Yes Immune Disorder: No Musculoskeletal: Yes (arthritis in back ) Neurologic: Yes (BELLS PALSY) Psychiatric: No Reproductive: No Respiratory: No Immunizations Current: No Thyroid Disease: No Menopausal: Yes : 4 Para: 4 Miscarriage: 0 : 0 Dilation and Curettage (D&C): Yes Tubal Ligation: Yes Past Surgical History Abdominal Surgery: Yes (APPY) Appendectomy: Yes Body Medical Devices: none Cardiac Surgery: No Section: Yes (X1) Coronary Artery Bypass Graft: No Ear Surgery: No Endocrine Surgery: No Eye Surgery: No Genitourinary Surgery: No Gynecologic Surgery: Yes (hysterectomy,CSECTION,D&C) Hysterectomy: Yes Joint Replacement: No Oral Surgery: No Pacemaker: No Thoracic Surgery: No Other Surgery: Yes Social History Alcohol Use: No Tobacco Use: No Substance Use: No Allergies-Medications (Allergen,Severity, Reaction): Coded Allergies: adhesive (Unverified Allergy, Severe, RASH, 07/04/17) codeine (Unverified Allergy, Severe, RASH, 07/04/17) Uncoded Allergies: plastic (Adverse Reaction, Severe, Rash, 04/14/16) dressings Reported Meds & Prescriptions Reported Meds & Active Scripts Active Diphenhydramine (Diphenhydramine HCl) 25 Mg Cap 25 Mg PO HS 3 Days [place] Nasal [place] (Sodium Chloride) 0.65% [place] 2 [place] EACH NARE DIRECTED PRN Toprol XL (Metoprolol Succinate) 100 Mg Tab 100 Mg PO DAILY Reported Triamterene-Hydrochlorothiazide 37.5-25 Mg Cap 1 Cap PO DAILY Klor-Con 10 (Potassium Chloride) 10 Meq Tab 10 Meq PO BID Lisinopril 40 Mg Tab 40 Mg PO DAILY Review of Systems Except as stated in HPI: all other systems reviewed are Neg Physical Exam Narrative GENERAL: Well-nourished female in no acute distress SKIN: Warm and dry. HEAD: Atraumatic. Normocephalic. EYES: Pupils equal and round. No scleral icterus. No injection or drainage. ENT: No nasal bleeding or discharge. Mucous membranes pink and moist. NECK: Trachea midline. No JVD. CARDIOVASCULAR: Regular rate and rhythm. No murmur appreciated. RESPIRATORY: No accessory muscle use. Clear to auscultation. Breath sounds equal bilaterally. GASTROINTESTINAL: Abdomen soft, generalized abdominal tenderness to palpation without guarding. MUSCULOSKELETAL: No obvious deformities. No clubbing. No cyanosis. No edema. NEUROLOGICAL: Awake and alert. No obvious cranial nerve deficits. Motor grossly within normal limits. Normal speech. PSYCHIATRIC: Appropriate mood and affect; insight and judgment normal. Data Data Last Documented VS Vital Signs Date Time Temp Pulse Resp B/P (MAP) Pulse Ox O2 Delivery O2 Flow Rate FiO2 07/09/17 21:15 74 18 150/67 (94) 76 18 149/69 (95) 81 18 131/55 (80) 07/09/17 18:37 93 Room Air 07/09/17 17:27 97.6 Orders Orders Complete Blood Count With Diff (07/09/17 18:02) Comprehensive Metabolic Panel (07/09/17 18:02) Lipase (07/09/17 18:02) Urinalysis - C+S If Indicated (07/09/17 18:02) Iv Access Insert/Monitor (07/09/17 18:02) Ecg Monitoring (07/09/17 18:02) Oximetry (07/09/17 18:02) Sodium Chloride 0.9% Flush (Ns Flush) (07/09/17 18:15) Electrocardiogram (07/09/17 18:02) Magnesium (Mg) (07/09/17 18:02) Ckmb (Isoenzyme) Profile (07/09/17 18:02) Troponin I (07/09/17 18:02) Act Partial Throm Time (Ptt) (07/09/17 18:02) Prothrombin Time / Inr (Pt) (07/09/17 18:02) Ct Brain W/O Iv Contrast(Rout) (07/09/17 18:02) Blood Glucose (07/09/17 18:02) Sodium Chlor 0.9% 1000 Ml Inj (Ns 1000 M (07/09/17 18:02) CKMB (07/09/17 18:50) CKMB% (07/09/17 18:50) Orthostatic Vital Signs (07/09/17 20:06) Ct Abd/Pel W/O Iv Contrast (07/09/17 18:02) Pantoprazole Inj (Protonix Inj) (07/09/17 21:30) Ondansetron Inj (Zofran Inj) (07/09/17 21:30) Place In Observation (07/09/17 ) Code Status (07/09/17 22:31) Vital Signs (Adult) Q4H (07/09/17 22:31) Activity Oob With Assistance (07/09/17 22:31) Diet Heart Healthy (07/10/17 Breakfast) Sodium Chloride 0.9% Flush (Ns Flush) (07/09/17 22:45) Sodium Chloride 0.9% Flush (Ns Flush) (07/10/17 09:00) Acetaminophen (Tylenol) (07/09/17 22:45) Ondansetron Inj (Zofran Inj) (07/09/17 22:45) Basic Metabolic Panel (Bmp) (07/10/17 06:00) Complete Blood Count With Diff (07/10/17 06:00) Electrocardiogram (07/09/17 22:31) Pt Request For Service (07/09/17 22:31) Scd Bilateral/Knee High BEATRIZ.BID (07/09/17 22:31) Naloxone Inj (Narcan Inj) (07/09/17 22:45) Magnesium Hydroxide Liq (Milk Of Magnesi (07/09/17 22:45) Ns + Kcl 20 Meq Inj (Ns + Kcl 20 Meq Inj (07/09/17 22:45) Admit Order (Ed Use Only) (07/09/17 22:35) Labs Laboratory Tests Test 07/09/17 18:50 07/09/17 18:53 White Blood Count 15.6 TH/MM3 Red Blood Count 3.45 MIL/MM3 Hemoglobin 11.7 GM/DL Hematocrit 34.5 % Mean Corpuscular Volume 99.8 FL Mean Corpuscular Hemoglobin 33.8 PG Mean Corpuscular Hemoglobin Concent 33.9 % Red Cell Distribution Width 13.0 % Platelet Count 186 TH/MM3 Mean Platelet Volume 10.9 FL Neutrophils (%) (Auto) 86.0 % Lymphocytes (%) (Auto) 6.7 % Monocytes (%) (Auto) 6.0 % Eosinophils (%) (Auto) 0.9 % Basophils (%) (Auto) 0.4 % Neutrophils # (Auto) 13.4 TH/MM3 Lymphocytes # (Auto) 1.0 TH/MM3 Monocytes # (Auto) 0.9 TH/MM3 Eosinophils # (Auto) 0.1 TH/MM3 Basophils # (Auto) 0.1 TH/MM3 CBC Comment DIFF FINAL Differential Comment Prothrombin Time 10.8 SEC Prothromb Time International Ratio 1.1 RATIO Activated Partial Thromboplast Time 22.2 SEC Blood Urea Nitrogen 23 MG/DL Creatinine 1.84 MG/DL Random Glucose 117 MG/DL Total Protein 7.3 GM/DL Albumin 3.2 GM/DL Calcium Level 9.0 MG/DL Magnesium Level 1.8 MG/DL Alkaline Phosphatase 115 U/L Aspartate Amino Transf (AST/SGOT) 26 U/L Alanine Aminotransferase (ALT/SGPT) 14 U/L Total Bilirubin 0.6 MG/DL Sodium Level 135 MEQ/L Potassium Level 3.8 MEQ/L Chloride Level 103 MEQ/L Carbon Dioxide Level 23.5 MEQ/L Anion Gap 9 MEQ/L Estimat Glomerular Filtration Rate 33 ML/MIN Total Creatine Kinase 192 U/L Creatine Kinase MB 1.6 NG/ML Troponin I LESS THAN 0.02 NG/ML Lipase 75 U/L Urine Color LIGHT-YELLOW Urine Turbidity CLEAR Urine pH 7.0 Urine Specific [place] 1.007 Urine Protein NEG mg/dL Urine Glucose (UA) NEG mg/dL Urine Ketones NEG mg/dL Urine Occult Blood NEG Urine Nitrite NEG Urine Bilirubin NEG Urine Urobilinogen LESS THAN 2.0 MG/DL Urine Leukocyte Esterase NEG Urine WBC 1 /hpf Urine Squamous Epithelial Cells 1 /hpf Urine Bacteria RARE /hpf Microscopic Urinalysis Comment CULT NOT INDICATED MDM Medical Decision Making Medical Screen Exam Complete: Yes Emergency Medical Condition: Yes Medical Record Reviewed: Yes Interpretation(s) EKG sinus rhythm CT brain, abdomen and pelvis no acute abnormalities CBC reveals WBC of 15.6 Differential Diagnosis Dehydration, electrolyte abnormality, aortic dissection, intracranial hemorrhage , arrhythmia, hypoglycemia, symptomatic anemia Narrative Course The patient was placed on ECG monitoring pulse oximetry. Twelve-lead EKG was obtained. Plans for basic lab work, CT brain, abdomen and pelvis. She was given IV fluids. Upon examination the patient feels improved. She has had no additional diarrhea during her hospital stay. Orthostatic vital signs were obtained revealing no significant change and no symptomology change. CBC reveals leukocytosis. CMP does reveal a GFR of 33 which is decreased from her baseline. She does report that she has not been hydrating recently and upon additional questioning she reports that she had one episode of emesis earlier today. Patient will be given Protonix and Zofran. Cardiac enzymes are negative. Urinalysis is unremarkable. 2144: Initially the patient was going to be discharged but upon attempting oral hydration she immediately became nauseous and vomited. She does not feel comfortable going home as she lives alone. She will be admitted. Diagnosis Primary Impression: Dehydration Additional Impressions: Acute renal insufficiency Syncope Nausea and vomiting Admitting Information Admitting Physician Requests: Observation Additional Instructions: Stay well-hydrated and well-nourished. Follow-up closely with primary care physician. Return for any acutely new or worsening symptoms. Med/Other Pt SpecificInfo: No Change to Meds Disposition: 01 DISCHARGE HOME Condition: Stable Lan Cooney Jul 09, 2017 18:08
[2017-07-09] MEDS ORDERED: SODIUM CHLORIDE 0.9% FLUSH 10 ML FLUSH IV FLUSH PRN ×2 (18:15→22:45)
[2017-07-09 18:37] VITALS: BP 137/64; PULSE 74; RESP 17; O2SAT 93
[2017-07-09 19:08] LABS: AUTOMATED NEUTROPHIL # 13.4 TH/MM3 (1.8-7.7); BASOPHIL # 0.1 TH/MM3 (0-0.2); BASOPHIL % 0.4 % (0.0-2.0); EOSINOPHIL # 0.1 TH/MM3 (0-0.4); EOSINOPHIL % 0.9 % (0.0-4.0); HEMATOCRIT 34.5 % (35.0-46.0); HEMOGLOBIN 11.7 GM/DL (11.6-15.3); LYMPH % 6.7 % (9.0-44.0); MEAN CELL VOLUME 99.8 FL (80.0-100.0); MEAN CORPUSCULAR HEMOGLOBIN 33.8 PG (27.0-34.0); MEAN CORPUSCULAR HGB CONC 33.9 % (32.0-36.0); MEAN PLATELET VOLUME 10.9 FL (7.0-11.0); MONOCYTE # 0.9 TH/MM3 (0-0.9); PLATELET COUNT 186 TH/MM3 (150-450); RED BLOOD COUNT 3.45 MIL/MM3 (4.00-5.30); WHITE BLOOD COUNT 15.6 TH/MM3 (4.0-11.0)
[2017-07-09 19:15] LABS: BACTERIA, URINE RARE /hpf; BILIRUBIN, URINE NEG (NEG); BLOOD, URINE NEG (NEG); GLUCOSE,URINE NEG (NEG); KETONE, URINE NEG (NEG); NITRITE,URINE NEG (NEG); SQUAMOUS EPITHELIAL CELL URINE 1 /hpf (0-5); URINE COLOR LIGHT-YELLOW (YELLW/STRAW); URINE LEUKOCYTE ESTERASE NEG (NEG)
[2017-07-09 19:33] LABS: INTERNATIONAL NORMALIZED RATIO 1.1 RATIO; PROTHROMBIN TIME - PATIENT 10.8 SEC (9.8-11.6)
[2017-07-09 19:56] LABS: ALBUMIN 3.2 GM/DL (3.4-5.0); ALKALINE PHOSPHATASE 115 U/L (45-117); ALT (GPT) 14 U/L (10-53); AST (GOT) 26 U/L (15-37); BICARBONATE 23.5 MEQ/L (21.0-32.0); BLOOD UREA NITROGEN 23 MG/DL (7-18); CHLORIDE 103 MEQ/L (98-107); CREATININE 1.84 MG/DL (0.50-1.00); GLOMERULAR FILTRATION RATE 33 ML/MIN (>89); GLUCOSE,RANDOM 117 MG/DL (74-106); LIPASE 75 U/L (73-393); MAGNESIUM 1.8 MG/DL (1.5-2.5); SODIUM (NA) 135 MEQ/L (136-145); TOTAL BILIRUBIN ADULT 0.6 MG/DL (0.2-1.0); TOTAL PROTEIN 7.3 GM/DL (6.4-8.2); TROPONIN I LESS THAN 0.02 NG/ML (0.02-0.05)
--- NOTE | 2017-07-09 21:06 | RADRPT ---
EXAM DATE/TIME: 07/09/2017 20:27 [facility] COMPARISON: No previous studies available for comparison. INDICATIONS : Abdominal pain. ORAL CONTRAST: No oral contrast ingested. RADIATION DOSE: 7.17 CTDIvol (mGy) MEDICAL HISTORY : Hypertension. Chavez's palsy. SURGICAL HISTORY : Hysterectomy. Appendectomy. ENCOUNTER: Initial ACUITY: 1 day PAIN SCALE: Non-responsive LOCATION: abdomen TECHNIQUE: Volumetric scanning of the abdomen and pelvis was performed. Using automated exposure control and ad justment of the mA and/or kV according to patient size, radiation dose was kept as low as reasonably achievable to obtain optimal diagnostic quality images. DICOM format image data is available electro nically for review and comparison. FINDINGS: Lung bases are clear except linear scarring. No acute findings in the liver, spleen, adrenals, kidney s or pancreas. This small hiatal hernia. There is no free fluid. No bowel obstruction. No adenopathy. CONCLUSION: 1. No acute findings on abdomen and pelvic CT. Small hiatal hernia. Postop hysterectomy and appendect wade. Gamaliel Ward MD on July 09, 2017 at 21:00 Board Certified Radiologist. This report was verified electronically.
--- NOTE | 2017-07-09 21:07 | RADRPT ---
EXAM DATE/TIME: 07/09/2017 20:28 [facility] COMPARISON: No previous studies available for comparison. INDICATIONS : Syncopal episode. RADIATION DOSE: 56.35 CTDIvol (mGy) MEDICAL HISTORY : Hypertension. Cardiovascular disease Chavez's palsy. SURGICAL HISTORY : None. ENCOUNTER: Initial ACUITY: 1 day PAIN SCALE: 0/10 LOCATION: cranial TECHNIQUE: Multiple contiguous axial images were obtained of the head. Using automated exposure control and adj ustment of the mA and/or kV according to patient size, radiation dose was kept as low as reasonably a chievable to obtain optimal diagnostic quality images. DICOM format image data is available electro nically for review and comparison. FINDINGS: CEREBRUM: The ventricles are normal for age. No evidence of midline shift, mass lesion, hemorrhage or acute in farction. No extra-axial fluid collections are seen. POSTERIOR FOSSA: The cerebellum and brainstem are intact. The 4th ventricle is midline. The cerebellopontine angle i s unremarkable. EXTRACRANIAL: The visualized portion of the orbits is intact. SKULL: The calvaria is intact. No evidence of skull fracture. CONCLUSION: 1. No acute intracranial abnormalities. Gamaliel Ward MD on July 09, 2017 at 21:04 Board Certified Radiologist. This report was verified electronically.
[2017-07-09 21:15] VITALS: BP_SYST 131; BP_SYST 149; BP_SYST 150; BP_DIAS 55; BP_DIAS 67; BP_DIAS 69; RESP 18
[2017-07-09] MEDS ORDERED: ONDANSETRON HCL 4 MG/2 ML VIAL IV PUSH ONE (21:30)
[2017-07-09] MEDS ORDERED: PANTOPRAZOLE SODIUM 40 MG VIAL IVP ONE (21:30)
[2017-07-09] MEDS ORDERED: NALOXONE HCL 0.4 MG/ML AMP IV PUSH PRN (22:45)
[2017-07-09] MEDS ORDERED: MAGNESIUM HYDROXIDE SUSP 30 ML CUP PO PRN (22:45)
[2017-07-09] MEDS ORDERED: ACETAMINOPHEN 325 MG TAB PO PRN (22:45)
[2017-07-09] MEDS ORDERED: ONDANSETRON HCL 4 MG/2 ML VIAL IVP PRN (22:45)
[2017-07-09 23:00] VITALS: BP 148/78; PULSE 87; RESP 18; O2SAT 100
[2017-07-09] MEDS: NS + KCL 20 MEQ INJ 1,000 ML IV SCH (23:49)
[2017-07-10] VITALS (7 sets, daily range): BP systolic 118–166; BP diastolic 60–72; PULSE 68–106; RESP 15–20; TEMP 96–98.4; O2SAT 93–100
[2017-07-10] MEDS: SODIUM CHLORIDE 0.9% FLUSH 10 ML FLUSH IV FLUSH SCH ×2 (09:00→21:00)
[2017-07-10] MEDS: POTASSIUM CHLORIDE 10 MEQ CONTROLLED RELEASE TAB PO SCH ×2 (09:29→21:11)
[2017-07-10] MEDS: METOPROLOL SUCCINATE 50 MG EXTENDED RELEASE TAB PO SCH (09:29)
--- NOTE | 2017-07-10 10:09 | HHI.HP ---
HPI Service [facility] Hospitalists Primary Care Physician Dennis Simpson M.D. 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 Welsh. Patient initially presented to the emergency department last night after she felt lightheaded and dizzy while walking down her hallway and then fell to the ground. Patient is unsure whether she lost consciousness or not. Patient denies head trauma. Once patient arrived to the emergency department she is complaining of generalized crampy abdominal pain which began on 07/09/2017 associated with 2 episodes of diarrhea and bright red rectal bleeding. Initially patient was going to be discharged from the ER instructed to increase oral hydration and follow-up with PCP. Patient attempted oral hydration she became nauseated and began vomiting. Patient vomited about 6 times yesterday. Patient denies bright red blood in vomitus material or black coffee ground appearance. Patient denies fevers chills shortness of breath or chest pain. Review of Systems Constitutional: COMPLAINS OF: Fatigue, DENIES: Fever, Chills Eyes: DENIES: Blurred vision, Diplopia, Vision loss Respiratory: DENIES: Cough, Sputum production, Shortness of breath Cardiovascular: DENIES: Chest pain, Palpitations, Dyspnea on Exertion Gastrointestinal: COMPLAINS OF: Abdominal pain, BRB per rectum, Diarrhea, Nausea, Vomiting Neurologic: COMPLAINS OF: Poor Balance, DENIES: Abnormal gait, Headache, Localized weakness, Speech Problems Psychiatric: DENIES: Anxiety, Confusion, Depression Past Family Social History Past Medical History arthritis, Chavez's palsy, hypertension, uterine papillary serous carcinoma Past Surgical History BÁRBARA/BSO 2012 Appendectomy section 1982 Colonoscopy 2009 Reported Medications Diphenhydramine (Diphenhydramine HCl) 25 Mg Cap 25 Mg PO HS 3 Days [place] Nasal Maynard (Sodium Chloride) 0.65% Maynard 2 Maynard EACH NARE DIRECTED PRN Toprol XL (Metoprolol Succinate) 100 Mg Tab 100 Mg PO DAILY Triamterene-Hydrochlorothiazide 37.5-25 Mg Cap 1 Cap PO DAILY Klor-Con 10 (Potassium Chloride) 10 Meq Tab 10 Meq PO BID Lisinopril 40 Mg Tab 40 Mg PO DAILY Allergies: Coded Allergies: adhesive (Unverified Allergy, Severe, RASH, 07/04/17) codeine (Unverified Allergy, Severe, RASH, 07/04/17) Uncoded Allergies: plastic (Adverse Reaction, Severe, Rash, 04/14/16) dressings Active Ordered Medications Current Medications Medications (Trade) Dose Ordered Sig/Suhas Route Start Time Stop Time Status Last Admin (NS Flush) 2 ml UNSCH PRN IV FLUSH 07/09/17 22:45 (NS Flush) 2 ml BID IV FLUSH 07/10/17 09:00 (Tylenol) 650 mg Q4H PRN PO 07/09/17 22:45 (Zofran Inj) 4 mg Q6H PRN IVP 07/09/17 22:45 07/10/17 06:54 (Narcan Inj) 0.4 mg UNSCH PRN IV PUSH 07/09/17 22:45 (Milk Of Magnesia Liq) 30 ml Q12H PRN PO 07/09/17 22:45 Potassium Chloride/Sodium Chloride 1,000 ml @ 85 mls/hr [id number] IV 07/09/17 22:45 07/09/17 23:49 (Toprol Xl) 100 mg DAILY PO 07/10/17 09:00 07/10/17 09:29 (KCl) 10 meq BID PO 07/10/17 09:00 07/10/17 09:29 Family History Reviewed and noncontributory Social History Lives alone Denies EtOH use tobacco use or illicit drug use Physical Exam Vital Signs Vital Signs Date Time Temp Pulse Resp B/P (MAP) Pulse Ox O2 Delivery O2 Flow Rate FiO2 07/10/17 07:51 97.9 84 18 151/69 (96) 100 07/10/17 04:00 98.4 89 16 131/61 (84) 99 07/10/17 00:00 97.9 88 16 166/72 (103) 100 07/09/17 23:01 07/09/17 23:00 87 18 148/78 (101) 100 07/09/17 21:15 74 18 150/67 (94) 76 18 149/69 (95) 81 18 131/55 (80) 07/09/17 18:37 74 17 137/64 (88) 93 Room Air 07/09/17 17:27 97.6 67 16 118/57 (77) 98 Physical Exam GENERAL: This is a elderly 72-year-old female patient, in no apparent distress. SKIN: No rashes, ecchymoses or lesions. Cool and dry. HEAD: Atraumatic. Normocephalic. No temporal or scalp tenderness. EYES: Pupils equal round and reactive. Extraocular motions intact. No scleral icterus. No injection or drainage. ENT: Nose without bleeding, purulent drainage or septal hematoma. Throat without erythema, tonsillar hypertrophy or exudate. Uvula midline. Airway patent. NECK: Trachea midline. No JVD or lymphadenopathy. Supple, nontender, no meningeal signs. CARDIOVASCULAR: Regular rate and rhythm without murmurs, gallops, or rubs. RESPIRATORY: Clear to auscultation. Breath sounds equal bilaterally. No wheezes , rales, or rhonchi. GASTROINTESTINAL: Abdomen soft, non-tender, nondistended. No hepato-splenomegaly , or palpable masses. No guarding. MUSCULOSKELETAL: Extremities without clubbing, cyanosis, or edema. No joint tenderness, effusion, or edema noted. No calf tenderness. Negative Homans sign bilaterally. NEUROLOGICAL: Awake and alert. Cranial nerves II through XII intact. Motor and sensory grossly within normal limits. Five out of 5 muscle strength in all muscle groups. Normal speech. Laboratory Laboratory Tests Test 07/09/17 18:50 07/09/17 18:53 White Blood Count 15.6 Red Blood Count 3.45 Hemoglobin 11.7 Hematocrit 34.5 Mean Corpuscular Volume 99.8 Mean Corpuscular Hemoglobin 33.8 Mean Corpuscular Hemoglobin Concent 33.9 Red Cell Distribution Width 13.0 Platelet Count 186 Mean Platelet Volume 10.9 Neutrophils (%) (Auto) 86.0 Lymphocytes (%) (Auto) 6.7 Monocytes (%) (Auto) 6.0 Eosinophils (%) (Auto) 0.9 Basophils (%) (Auto) 0.4 Neutrophils # (Auto) 13.4 Lymphocytes # (Auto) 1.0 Monocytes # (Auto) 0.9 Eosinophils # (Auto) 0.1 Basophils # (Auto) 0.1 CBC Comment DIFF FINAL Differential Comment Prothrombin Time 10.8 Prothromb Time International Ratio 1.1 Activated Partial Thromboplast Time 22.2 Blood Urea Nitrogen 23 Creatinine 1.84 Random Glucose 117 Total Protein 7.3 Albumin 3.2 Calcium Level 9.0 Magnesium Level 1.8 Alkaline Phosphatase 115 Aspartate Amino Transf (AST/SGOT) 26 Alanine Aminotransferase (ALT/SGPT) 14 Total Bilirubin 0.6 Sodium Level 135 Potassium Level 3.8 Chloride Level 103 Carbon Dioxide Level 23.5 Anion Gap 9 Estimat Glomerular Filtration Rate 33 Total Creatine Kinase 192 Creatine Kinase MB 1.6 Troponin I LESS THAN 0.02 Lipase 75 Urine Color LIGHT-YELLOW Urine Turbidity CLEAR Urine pH 7.0 Urine Specific [place] 1.007 Urine Protein NEG Urine Glucose (UA) NEG Urine Ketones NEG Urine Occult Blood NEG Urine Nitrite NEG Urine Bilirubin NEG Urine Urobilinogen LESS THAN 2.0 Urine Leukocyte Esterase NEG Urine WBC 1 Urine Squamous Epithelial Cells 1 Urine Bacteria RARE Microscopic Urinalysis Comment CULT NOT INDICATED Result Diagram: 07/09/17184907/09/[id number] Imaging Last Impressions Head CT 07/09/171801 Signed Impressions: Service Date/Time: Sunday, July 09, 2017 20:28 - CONCLUSION: 1. No acute intracranial abnormalities. Gamaliel Ward MD Abdomen/Pelvis CT 07/09/171801 Signed Impressions: Service Date/Time: Sunday, July 09, 2017 20:27 - CONCLUSION: 1. No acute findings on abdomen and pelvic CT. Small hiatal hernia. Postop hysterectomy and appendectomy. MD Neymar Irwini VTE Risk Assessment Caprini VTE Risk Assessment: No/Low Risk (score <= 1) Caprini Risk Assessment Model Point Value = 1 Point Value = 2 Point Value = 3 Point Value = 5 Age 41-60 Minor surgery BMI > 25 kg/m2 Swollen legs Varicose veins or History of unexplained or recurrent spontaneous Oral contraceptives or hormone replacement Sepsis (< 1 month) Serious lung disease, including pneumonia (< 1 month) Abnormal pulmonary function Acute myocardial infarction Congestive heart failure (< 1 month) History of inflammatory bowel disease Medical patient at bed rest Age 61-74 Arthroscopic surgery Major open surgery (> 45 min) Laparoscopic surgery (> 45 min) Malignancy Confined to bed (> 72 hours) Immobilizing plaster cast Central venous access Age >= 75 History of VTE Family history of VTE Factor V Leiden Prothrombin [id number] Lupus anticoagulant Anticardiolipin antibodies Elevated serum homocysteine Heparin-induced thrombocytopenia Other congenital or acquired thrombophilia Stroke (< 1 month) Elective arthroplasty Hip, pelvis, or leg fracture Acute spinal cord injury (< 1 month) Prophylaxis Regimen Total Risk Factor Score Risk Level Prophylaxis Regimen 0-1 Low Early ambulation 2 Moderate Order ONE of the following: *Sequential Compression Device (SCD) *Heparin 5000 units SQ BID 3-4 Higher Order ONE of the following medications: *Heparin 5000 units SQ TID *Enoxaparin/Lovenox 40 mg SQ daily (WT < 150 kg, CrCl > 30 mL/min) *Enoxaparin/Lovenox 30 mg SQ daily (WT < 150 kg, CrCl > 10-29 mL/min) *Enoxaparin/Lovenox 30 mg SQ BID (WT < 150 kg, CrCl > 30 mL/min) AND/OR *Sequential Compression Device (SCD) 5 or more Highest Order ONE of the following medications: *Heparin 5000 units SQ TID (Preferred with Epidurals) *Enoxaparin/Lovenox 40 mg SQ daily (WT < 150 kg, CrCl > 30 mL/min) *Enoxaparin/Lovenox 30 mg SQ daily (WT < 150 kg, CrCl > 10-29 mL/min) *Enoxaparin/Lovenox 30 mg SQ BID (WT < 150 kg, CrCl > 30 mL/min) AND *Sequential Compression Device (SCD) Assessment and Plan Problem List: (1) GI bleed ICD Codes: K92.2 - Gastrointestinal hemorrhage, unspecified Plan: This a 72-year-old female patient with past medical history which includes arthritis, Chavez's palsy, hypertension, 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 Welsh. Patient initially presented to the emergency department last night after she felt lightheaded and dizzy while walking down her hallway and then fell to the ground. Patient is unsure whether she lost consciousness or not. Patient denies head trauma. Once patient arrived to the emergency department she is complaining of generalized crampy abdominal pain which began on 07/09/2017 associated with 2 episodes of diarrhea and bright red rectal bleeding. Initially patient was going to be discharged from the ER instructed to increase oral hydration and follow-up with PCP. Patient attempted oral hydration she became nauseated and began vomiting. Patient vomited about 6 times yesterday. Patient denies bright red blood in vomitus material or black coffee ground appearance. Patient denies fevers chills shortness of breath or chest pain. Vital signs consistent with orthostatic hypotension BUN 23, creatinine 1.84, assessment GFR 33 Protonix IV hydration GI consult occult stool pending recheck CBC pending (2) Dehydration ICD Codes: E86.0 - Dehydration Status: Acute Plan: See above (3) Nausea and vomiting ICD Codes: R11.2 - Nausea with vomiting, unspecified Status: Acute Plan: Zofran as needed Supportive care IV hydration (4) Abdominal pain ICD Codes: R10.9 - Unspecified abdominal pain Status: Acute Plan: CT abdomen and pelvis reviewed and reveals no acute findings on abdomen and pelvis CT. Small hiatal hernia. Postoperative hysterectomy and appendectomy (5) Acute renal insufficiency ICD Codes: N28.9 - Disorder of kidney and ureter, unspecified Status: Acute Plan: Likely secondary to dehydration/GI bleed IV hydration recheck BMP pending Assessment and Plan Patient examined. Assessment and plan formulated with Korina Swan PA-C. I agree with the above. Pt c/o abdominal pain with rectal bleeding. Case d/w GI Pt to have EGD/Colonoscopy 07/12/17 Korina Swan Jul 10, 2017 10:09 Billy Garcia DO Jul 11, 2017 11:45
[2017-07-10] MEDS ORDERED: LISI-515 PO (11:29)
--- NOTE | 2017-07-10 12:18 | PD.CONS ---
HPI History of Present Illness This is a 72 year old female with hx uterine papillary serous carcinoma who presented to ER after episode of dizziness and subsequent fall. SHe did have some n/v here in ER. Was having diffuse abd pain that started yesterday. She had some loose stool when EMS arrived. Last night she noticed bright red rectal bleeding independent of stool. Says she is having it now. Denies abd pain currently. NO black tarry stool. She had colonoscopy "many moons" ago and can recall no details. Never had EGD. Never had GIB before. PFSH Past Medical History hx uterine papillary carcinoma Past Surgical History hysterectomy Coded Allergies: adhesive (Unverified Allergy, Severe, RASH, 07/04/17) codeine (Unverified Allergy, Severe, RASH, 07/04/17) Uncoded Allergies: plastic (Adverse Reaction, Severe, Rash, 04/14/16) dressings Family History unk Social History denies ETOH no tobacco or illicit drug use Review of Systems Constitutional: DENIES: Fever, Weight loss Endocrine: DENIES: Polydipsia Eyes: DENIES: Blurred vision Ears, nose, mouth, throat: DENIES: Hearing loss Respiratory: DENIES: Cough Cardiovascular: DENIES: Chest pain Gastrointestinal: COMPLAINS OF: Bloody stools, Diarrhea, Nausea, Vomiting, DENIES: Abdominal pain, Black stools, Constipation, Hematemesis Genitourinary: DENIES: Hematuria Musculoskeletal: DENIES: Joint Swelling Integumentary: DENIES: Rash Hematologic/lymphatic: DENIES: Bruising Neurologic: DENIES: Abnormal gait Psychiatric: DENIES: Confusion GI Exam Vitals I&O Vital Signs Date Time Temp Pulse Resp B/P (MAP) Pulse Ox O2 Delivery O2 Flow Rate FiO2 07/10/17 11:45 96.5 73 18 134/60 (84) 100 07/10/17 07:51 97.9 84 18 151/69 (96) 100 07/10/17 04:00 98.4 89 16 131/61 (84) 99 07/10/17 00:00 97.9 88 16 166/72 (103) 100 07/09/17 23:01 07/09/17 23:00 87 18 148/78 (101) 100 07/09/17 21:15 74 18 150/67 (94) 76 18 149/69 (95) 81 18 131/55 (80) 07/09/17 18:37 74 17 137/64 (88) 93 Room Air 07/09/17 17:27 97.6 67 16 118/57 (77) 98 I/O 07/09/17 07/09/17 07/09/17 07/10/17 07/10/17 07/10/17 07:00 15:00 23:00 07:00 15:00 23:00 Intake Total 1090 ml Balance 1090 ml Intake Oral 90 ml IV Total 1000 ml # Voids 2 Imaging Last Impressions Head CT 07/09/171801 Signed Impressions: Service Date/Time: Sunday, July 09, 2017 20:28 - CONCLUSION: 1. No acute intracranial abnormalities. Gamaliel Ward MD Abdomen/Pelvis CT 07/09/171801 Signed Impressions: Service Date/Time: Sunday, July 09, 2017 20:27 - CONCLUSION: 1. No acute findings on abdomen and pelvic CT. Small hiatal hernia. Postop hysterectomy and appendectomy. Gamaliel Ward MD Laboratory Test 07/09/17 18:50 07/09/17 18:53 White Blood Count 15.6 TH/MM3 Red Blood Count 3.45 MIL/MM3 Hemoglobin 11.7 GM/DL Hematocrit 34.5 % Mean Corpuscular Volume 99.8 FL Mean Corpuscular Hemoglobin 33.8 PG Mean Corpuscular Hemoglobin Concent 33.9 % Red Cell Distribution Width 13.0 % Platelet Count 186 TH/MM3 Mean Platelet Volume 10.9 FL Neutrophils (%) (Auto) 86.0 % Lymphocytes (%) (Auto) 6.7 % Monocytes (%) (Auto) 6.0 % Eosinophils (%) (Auto) 0.9 % Basophils (%) (Auto) 0.4 % Neutrophils # (Auto) 13.4 TH/MM3 Lymphocytes # (Auto) 1.0 TH/MM3 Monocytes # (Auto) 0.9 TH/MM3 Eosinophils # (Auto) 0.1 TH/MM3 Basophils # (Auto) 0.1 TH/MM3 CBC Comment DIFF FINAL Differential Comment Prothrombin Time 10.8 SEC Prothromb Time International Ratio 1.1 RATIO Activated Partial Thromboplast Time 22.2 SEC Blood Urea Nitrogen 23 MG/DL Creatinine 1.84 MG/DL Random Glucose 117 MG/DL Total Protein 7.3 GM/DL Albumin 3.2 GM/DL Calcium Level 9.0 MG/DL Magnesium Level 1.8 MG/DL Alkaline Phosphatase 115 U/L Aspartate Amino Transf (AST/SGOT) 26 U/L Alanine Aminotransferase (ALT/SGPT) 14 U/L Total Bilirubin 0.6 MG/DL Sodium Level 135 MEQ/L Potassium Level 3.8 MEQ/L Chloride Level 103 MEQ/L Carbon Dioxide Level 23.5 MEQ/L Anion Gap 9 MEQ/L Estimat Glomerular Filtration Rate 33 ML/MIN Total Creatine Kinase 192 U/L Creatine Kinase MB 1.6 NG/ML Troponin I LESS THAN 0.02 NG/ML Lipase 75 U/L Urine Color LIGHT-YELLOW Urine Turbidity CLEAR Urine pH 7.0 Urine Specific [place] 1.007 Urine Protein NEG mg/dL Urine Glucose (UA) NEG mg/dL Urine Ketones NEG mg/dL Urine Occult Blood NEG Urine Nitrite NEG Urine Bilirubin NEG Urine Urobilinogen LESS THAN 2.0 MG/DL Urine Leukocyte Esterase NEG Urine WBC 1 /hpf Urine Squamous Epithelial Cells 1 /hpf Urine Bacteria RARE /hpf Microscopic Urinalysis Comment CULT NOT INDICATED Physical Examination HEENT: PERRL; normocephalic; atraumatic; no jaundice. Throat is clear. NECK: Neck is supple, no JVD, no lymphadenopathy. CHEST: CTA CARDIAC: RRR ABDOMEN: Soft, nondistended, mild diffuse TTP; no hepatosplenomegaly; bowel sounds are present in all four quadrants. EXTREMITIES: No clubbing, cyanosis, or edema. SKIN: Normal; no rash; no jaundice. 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 PLAN - stool studies - colonoscopy wednesday - monitor HH - transfuse if needed - obtain consent - clears wednesday - NPO after wednesday [place] - [facility] wednesday night - further recs to follow This pt d/w Dr Vincent and this note written on his behalf Terri Prieto Jul 10, 2017 12:18
[2017-07-10] MEDS: PANTOPRAZOLE SODIUM 40 MG VIAL IV PUSH SCH (12:22)
[2017-07-10] MEDS: NS + KCL 20 MEQ INJ 1,000 ML IV SCH (12:24)
--- NOTE | 2017-07-10 12:49 | EKG ---
Date Performed: 07/09/2017 Time Performed: 19:04:28 PTAGE: 72 years EKG: Sinus rhythm NONSPECIFIC T-WAVE ABNORMALITY BORDERLINE ECG WARNING: DATA QUALITY MAY AFFECT INTERPRETATION PREVIOUS TRACING : 05/01/2017 09.25 Since previous tracing, T-waves more flattened shadi laterally. DOCTOR: Donny Stacy Interpretating Date/Time 07/10/2017 12:48:14
--- NOTE | 2017-07-10 12:50 | EKG ---
Date Performed: 07/10/2017 Time Performed: 04:53:19 PTAGE: 72 years EKG: Sinus rhythm NONSPECIFIC T-WAVE ABNORMALITY ABNORMAL ECG PREVIOUS TRACING : 07/09/2017 19.04 Compared to prior tracing no significant change DOCTOR: Donny Stacy Interpretating Date/Time 07/10/2017 12:48:40
[2017-07-10 13:38] LABS: AUTOMATED NEUTROPHIL # 11.8 TH/MM3 (1.8-7.7); BASOPHIL % 0.2 % (0.0-2.0); EOSINOPHIL % 0.1 % (0.0-4.0); HEMATOCRIT 31.8 % (35.0-46.0); HEMOGLOBIN 10.7 GM/DL (11.6-15.3); LYMPH % 7.6 % (9.0-44.0); MEAN CELL VOLUME 99.2 FL (80.0-100.0); MEAN CORPUSCULAR HEMOGLOBIN 33.4 PG (27.0-34.0); MEAN CORPUSCULAR HGB CONC 33.7 % (32.0-36.0); MEAN PLATELET VOLUME 10.4 FL (7.0-11.0); MONO % 5.6 % (0.0-8.0); MONOCYTE # 0.8 TH/MM3 (0-0.9); NEUT % 86.5 % (16.0-70.0); PLATELET COUNT 179 TH/MM3 (150-450); RED BLOOD COUNT 3.21 MIL/MM3 (4.00-5.30); RED CELL DISTRIBUTION WIDTH 13.1 % (11.6-17.2); WHITE BLOOD COUNT 13.7 TH/MM3 (4.0-11.0)
[2017-07-10 13:46] LABS: BICARBONATE 26.2 MEQ/L (21.0-32.0); CALCIUM 9.2 MG/DL (8.5-10.1); CREATININE 1.6 MG/DL (0.50-1.00)
[2017-07-11 00:25] VITALS: BP 129/60; PULSE 73; RESP 20; TEMP 97.3; O2SAT 99
[2017-07-11] MEDS: NS + KCL 20 MEQ INJ 1,000 ML IV SCH (02:13)
[2017-07-11 04:37] VITALS: BP 134/66; PULSE 66; RESP 18; TEMP 98.7; O2SAT 99
[2017-07-11 05:19] LABS: AUTOMATED NEUTROPHIL # 8.4 TH/MM3 (1.8-7.7); BASOPHIL # 0.1 TH/MM3 (0-0.2); BASOPHIL % 0.7 % (0.0-2.0); EOSINOPHIL # 0.1 TH/MM3 (0-0.4); EOSINOPHIL % 1.2 % (0.0-4.0); HEMATOCRIT 29.9 % (35.0-46.0); HEMOGLOBIN 10.1 GM/DL (11.6-15.3); LYMPH % 17.4 % (9.0-44.0); MEAN CELL VOLUME 99.1 FL (80.0-100.0); MEAN CORPUSCULAR HEMOGLOBIN 33.4 PG (27.0-34.0); MEAN CORPUSCULAR HGB CONC 33.7 % (32.0-36.0); MEAN PLATELET VOLUME 10.5 FL (7.0-11.0); MONO % 7.5 % (0.0-8.0); MONOCYTE # 0.9 TH/MM3 (0-0.9); NEUT % 73.2 % (16.0-70.0); PLATELET COUNT 147 TH/MM3 (150-450); RED BLOOD COUNT 3.01 MIL/MM3 (4.00-5.30); WHITE BLOOD COUNT 11.5 TH/MM3 (4.0-11.0)
[2017-07-11 05:33] LABS: BICARBONATE 26.4 MEQ/L (21.0-32.0); CALCIUM 8.8 MG/DL (8.5-10.1); CREATININE 1.44 MG/DL (0.50-1.00)
[2017-07-11 07:38] VITALS: BP 131/60; PULSE 70; RESP 18; TEMP 98.2; O2SAT 99
[2017-07-11] MEDS: SODIUM CHLORIDE 0.9% FLUSH 10 ML FLUSH IV FLUSH SCH ×2 (09:00→20:46)
[2017-07-11] MEDS: METOPROLOL SUCCINATE 50 MG EXTENDED RELEASE TAB PO SCH (09:01)
[2017-07-11] MEDS: POTASSIUM CHLORIDE 10 MEQ CONTROLLED RELEASE TAB PO SCH ×2 (09:01→20:47)
[2017-07-11] MEDS: PANTOPRAZOLE SODIUM 40 MG VIAL IV PUSH SCH (09:02)
[2017-07-11] MEDS ORDERED: POTASSIUM CHLORIDE 20 MEQ CONTROLLED RELEASE TAB PO ONE (09:15)
--- NOTE | 2017-07-11 11:52 | HHI.PR ---
Subjective Remarks Pt denies abdominal pain today. Pt has been tolerating clear liquid diet. Pt denies n/v/d Pt denies further BRB per rectum. Objective Vitals Vital Signs Date Time Temp Pulse Resp B/P (MAP) Pulse Ox O2 Delivery O2 Flow Rate FiO2 07/11/17 07:38 98.2 70 18 131/60 (83) 99 07/11/17 04:37 98.7 66 18 134/66 (88) 99 07/11/17 00:25 97.3 73 20 129/60 (83) 99 07/10/17 20:48 97.6 68 20 153/67 (95) 100 07/10/17 16:56 97.5 68 15 158/70 (99) 99 Result Diagram: 07/11/1743007/11/17430 Imaging Last Impressions Head CT 07/09/171801 Signed Impressions: Service Date/Time: Sunday, July 09, 2017 20:28 - CONCLUSION: 1. No acute intracranial abnormalities. Gamaliel Ward MD Abdomen/Pelvis CT 07/09/171801 Signed Impressions: Service Date/Time: Sunday, July 09, 2017 20:27 - CONCLUSION: 1. No acute findings on abdomen and pelvic CT. Small hiatal hernia. Postop hysterectomy and appendectomy. Gamaliel Ward MD Objective Remarks GENERAL: This is a well-nourished, well-developed patient, in no apparent distress. CARDIOVASCULAR: Regular rate and rhythm without murmurs, gallops, or rubs. RESPIRATORY: Clear to auscultation. Breath sounds equal bilaterally. No wheezes , rales, or rhonchi. GASTROINTESTINAL: Abdomen soft, non-tender, nondistended. Normal active bowel sounds MUSCULOSKELETAL: Extremities without clubbing, cyanosis, or edema. NEURO: Alert & Oriented x4 to person, place, time, situation. 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 Welsh. Patient initially presented to the emergency department last night after she felt lightheaded and dizzy while walking down her hallway and then fell to the ground. Patient is unsure whether she lost consciousness or not. Patient denies head trauma. Once patient arrived to the emergency department she is complaining of generalized crampy abdominal pain which began on 07/09/2017 associated with 2 episodes of diarrhea and bright red rectal bleeding. Initially patient was going to be discharged from the ER instructed to increase oral hydration and follow-up with PCP. Patient attempted oral hydration she became nauseated and began vomiting. Patient vomited about 6 times yesterday. - pt c/o BRB per rectum (07/10/17) - IV protonix - occult stool pending - Hg 11.7 (07/09), 10.7 (07/10), 10.1 (07/11) - Repeat CBC in AM - Pt to have EGD/Colonoscopy (07/12/17) - appreciate input from PT - DVT prophylaxis with SCDs - supportive care - anticipate discharge to home 07/12/17 (2) Dehydration ICD Codes: E86.0 - Dehydration Status: Acute Plan: - See above (3) Nausea and vomiting ICD Codes: R11.2 - Nausea with vomiting, unspecified Status: Resolved Plan: Zofran as needed Supportive care IV hydration (4) Abdominal pain ICD Codes: R10.9 - Unspecified abdominal pain Status: Resolved Plan: CT abdomen and pelvis reviewed and reveals no acute findings on abdomen and pelvis CT. Small hiatal hernia. Postoperative hysterectomy and appendectomy (5) Acute renal insufficiency ICD Codes: N28.9 - Disorder of kidney and ureter, unspecified Status: Acute Plan: - improving Likely secondary to dehydration/GI bleed IV hydration - repeat BMP in AM Billy Garcia DO Jul 11, 2017 11:52
[2017-07-11 12:04] VITALS: BP 129/61; PULSE 57; RESP 16; TEMP 98.2; O2SAT 100
[2017-07-11 15:13] VITALS: BP 122/59; PULSE 58; RESP 18; TEMP 98.3; O2SAT 100
[2017-07-11] MEDS ORDERED: PEG (High)/E-LYTE SOLN 4000 ML BTL PO ONE (16:00)
[2017-07-11] MEDS ORDERED: POVIDONE IODINE 5% (ANTISEPSIS KIT) 4 APPLICATIONS EACH NARE PRN (17:15)
[2017-07-11] MEDS ORDERED: LACTATED RINGER'S 1000 ML IV PRN (17:15)
[2017-07-11] MEDS ORDERED: SODIUM CHLORID 0.9% 500 ML IV PRN (17:15)
[2017-07-11] MEDS ORDERED: CHLORHEXIDINE GLUCONATE 2 % 1 PACK (2 CLOTHS) TOPICAL PRN (17:15)
[2017-07-11] MEDS ORDERED: METOPROLOL TARTRATE 25 MG TAB PO PRN (17:15)
[2017-07-11 20:50] VITALS: BP 164/73; PULSE 73; RESP 18; TEMP 98.5; O2SAT 100
[2017-07-12] VITALS: BP 150/72; PULSE 81; RESP 16; TEMP 97.9; O2SAT 99
[2017-07-12 04:00] VITALS: BP 144/66; PULSE 64; RESP 17; TEMP 97.8; O2SAT 98
[2017-07-12 04:00] LABS: HEMATOCRIT 28.9 % (35.0-46.0); HEMOGLOBIN 9.7 GM/DL (11.6-15.3); MEAN CELL VOLUME 99.6 FL (80.0-100.0); MEAN CORPUSCULAR HEMOGLOBIN 33.5 PG (27.0-34.0); MEAN CORPUSCULAR HGB CONC 33.7 % (32.0-36.0); PLATELET COUNT 129 TH/MM3 (150-450); RED CELL DISTRIBUTION WIDTH 12.8 % (11.6-17.2); WHITE BLOOD COUNT 12.7 TH/MM3 (4.0-11.0)
[2017-07-12 04:20] LABS: BICARBONATE 26.5 MEQ/L (21.0-32.0); CALCIUM 8.5 MG/DL (8.5-10.1); CREATININE 1.29 MG/DL (0.50-1.00)
[2017-07-12 07:53] VITALS: BP 146/65; PULSE 66; RESP 16; TEMP 97.6; O2SAT 99
--- NOTE | 2017-07-12 07:59 | HHI.PR ---
Subjective Remarks Patient resting in bed reports passing bright red blood per rectum during BMs with prep for colonoscopy offers no other complaints at this time Objective Vitals Vital Signs Date Time Temp Pulse Resp B/P (MAP) Pulse Ox O2 Delivery O2 Flow Rate FiO2 07/12/17 07:53 97.6 66 16 146/65 (92) 99 07/12/17 04:00 97.8 64 17 144/66 (92) 98 07/12/17 00:00 97.9 81 16 150/72 (98) 99 07/11/17 20:50 98.5 73 18 164/73 (103) 100 07/11/17 15:13 98.3 58 18 122/59 (80) 100 07/11/17 12:04 98.2 57 16 129/61 (83) 100 Result Diagram: 07/12/17 0342 07/12/17 0342 Other Results Laboratory Tests Test 07/09/17 18:50 07/09/17 18:53 07/10/17 12:56 07/11/17 04:31 White Blood Count 15.6 TH/MM3 13.7 TH/MM3 11.5 TH/MM3 Red Blood Count 3.45 MIL/MM3 3.21 MIL/MM3 3.01 MIL/MM3 Hemoglobin 11.7 GM/DL 10.7 GM/DL 10.1 GM/DL Hematocrit 34.5 % 31.8 % 29.9 % Mean Corpuscular Volume 99.8 FL 99.2 FL 99.1 FL Mean Corpuscular Hemoglobin 33.8 PG 33.4 PG 33.4 PG Mean Corpuscular Hemoglobin Concent 33.9 % 33.7 % 33.7 % Red Cell Distribution Width 13.0 % 13.1 % 13.0 % Platelet Count 186 TH/MM3 179 TH/MM3 147 TH/MM3 Mean Platelet Volume 10.9 FL 10.4 FL 10.5 FL Neutrophils (%) (Auto) 86.0 % 86.5 % 73.2 % Lymphocytes (%) (Auto) 6.7 % 7.6 % 17.4 % Monocytes (%) (Auto) 6.0 % 5.6 % 7.5 % Eosinophils (%) (Auto) 0.9 % 0.1 % 1.2 % Basophils (%) (Auto) 0.4 % 0.2 % 0.7 % Neutrophils # (Auto) 13.4 TH/MM3 11.8 TH/MM3 8.4 TH/MM3 Lymphocytes # (Auto) 1.0 TH/MM3 1.0 TH/MM3 2.0 TH/MM3 Monocytes # (Auto) 0.9 TH/MM3 0.8 TH/MM3 0.9 TH/MM3 Eosinophils # (Auto) 0.1 TH/MM3 0.0 TH/MM3 0.1 TH/MM3 Basophils # (Auto) 0.1 TH/MM3 0.0 TH/MM3 0.1 TH/MM3 CBC Comment DIFF FINAL DIFF FINAL DIFF FINAL Differential Comment Prothrombin Time 10.8 SEC Prothromb Time International Ratio 1.1 RATIO Activated Partial Thromboplast Time 22.2 SEC Blood Urea Nitrogen 23 MG/DL 19 MG/DL 15 MG/DL Creatinine 1.84 MG/DL 1.60 MG/DL 1.44 MG/DL Random Glucose 117 MG/DL 97 MG/DL 85 MG/DL Total Protein 7.3 GM/DL Albumin 3.2 GM/DL Calcium Level 9.0 MG/DL 9.2 MG/DL 8.8 MG/DL Magnesium Level 1.8 MG/DL Alkaline Phosphatase 115 U/L Aspartate Amino Transf (AST/SGOT) 26 U/L Alanine Aminotransferase (ALT/SGPT) 14 U/L Total Bilirubin 0.6 MG/DL Sodium Level 135 MEQ/L 138 MEQ/L 142 MEQ/L Potassium Level 3.8 MEQ/L 3.3 MEQ/L 3.3 MEQ/L Chloride Level 103 MEQ/L 104 MEQ/L 109 MEQ/L Carbon Dioxide Level 23.5 MEQ/L 26.2 MEQ/L 26.4 MEQ/L Anion Gap 9 MEQ/L 8 MEQ/L 7 MEQ/L Estimat Glomerular Filtration Rate 33 ML/MIN 39 ML/MIN 44 ML/MIN Total Creatine Kinase 192 U/L Creatine Kinase MB 1.6 NG/ML Troponin I LESS THAN 0.02 NG/ML Lipase 75 U/L Urine Color LIGHT-YELLOW Urine Turbidity CLEAR Urine pH 7.0 Urine Specific [place] 1.007 Urine Protein NEG mg/dL Urine Glucose (UA) NEG mg/dL Urine Ketones NEG mg/dL Urine Occult Blood NEG Urine Nitrite NEG Urine Bilirubin NEG Urine Urobilinogen LESS THAN 2.0 MG/DL Urine Leukocyte Esterase NEG Urine WBC 1 /hpf Urine Squamous Epithelial Cells 1 /hpf Urine Bacteria RARE /hpf Microscopic Urinalysis Comment CULT NOT INDICATED Test 07/12/17 03:42 White Blood Count 12.7 TH/MM3 Red Blood Count 2.90 MIL/MM3 Hemoglobin 9.7 GM/DL Hematocrit 28.9 % Mean Corpuscular Volume 99.6 FL Mean Corpuscular Hemoglobin 33.5 PG Mean Corpuscular Hemoglobin Concent 33.7 % Red Cell Distribution Width 12.8 % Platelet Count 129 TH/MM3 Mean Platelet Volume 10.0 FL Hematology Comments Blood Urea Nitrogen 13 MG/DL Creatinine 1.29 MG/DL Random Glucose 71 MG/DL Calcium Level 8.5 MG/DL Sodium Level 144 MEQ/L Potassium Level 3.7 MEQ/L Chloride Level 111 MEQ/L Carbon Dioxide Level 26.5 MEQ/L Anion Gap 7 MEQ/L Estimat Glomerular Filtration Rate 49 ML/MIN Imaging Last Impressions Head CT 07/09/171801 Signed Impressions: Service Date/Time: Sunday, July 09, 2017 20:28 - CONCLUSION: 1. No acute intracranial abnormalities. Gamaliel Ward MD Abdomen/Pelvis CT 07/09/171801 Signed Impressions: Service Date/Time: Sunday, July 09, 2017 20:27 - CONCLUSION: 1. No acute findings on abdomen and pelvic CT. Small hiatal hernia. Postop hysterectomy and appendectomy. Gamaliel Ward MD Objective Remarks GENERAL: This is a well-nourished, well-developed patient, in no apparent distress. CARDIOVASCULAR: Regular rate and rhythm RESPIRATORY: Clear to auscultation. Breath sounds equal bilaterally. No wheezes , rales, or rhonchi. GASTROINTESTINAL: Abdomen soft, non-tender, nondistended. Normal active bowel sounds MUSCULOSKELETAL: Extremities without clubbing, cyanosis, or edema. NEURO: Alert & Oriented x4 to person, place, time, situation. 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 Welsh. Patient initially presented to the emergency department last night after she felt lightheaded and dizzy while walking down her hallway and then fell to the ground. Patient is unsure whether she lost consciousness or not. Patient denies head trauma. Once patient arrived to the emergency department she is complaining of generalized crampy abdominal pain which began on 07/09/2017 associated with 2 episodes of diarrhea and bright red rectal bleeding. Initially patient was going to be discharged from the ER instructed to increase oral hydration and follow-up with PCP. Patient attempted oral hydration she became nauseated and began vomiting. Patient vomited about 6 times yesterday. - pt c/o BRB per rectum (07/10/17) - IV protonix - occult stool pending - Hg 11.7 (07/09), 10.7 (07/10), 10.1 (07/11), 9.7 (07/12) - Pt to have EGD/Colonoscopy (07/12/17) - appreciate input from PT. PT recommending home with no PT - DVT prophylaxis with SCDs - supportive care - anticipate discharge to home 07/12/17 if cleared by GI (2) Dehydration ICD Codes: E86.0 - Dehydration Status: Acute Plan: - See above (3) Nausea and vomiting ICD Codes: R11.2 - Nausea with vomiting, unspecified Status: Resolved Plan: Zofran as needed Supportive care IV hydration (4) Abdominal pain ICD Codes: R10.9 - Unspecified abdominal pain Status: Resolved Plan: CT abdomen and pelvis reviewed and reveals no acute findings on abdomen and pelvis CT. Small hiatal hernia. Postoperative hysterectomy and appendectomy (5) Acute renal insufficiency ICD Codes: N28.9 - Disorder of kidney and ureter, unspecified Status: Acute Plan: - improving -Likely secondary to dehydration/GI bleed -IV hydration 07/09 - 07/12 Assessment and Plan Patient examined. Assessment and plan formulated with Korina Swan PA-C. I agree with the above. pt eager for d/c will make sure tolerating diet and ambulating prior to d/c arrange hhc/pt eval. recommended she have family stay with her. f/u GI for pending colon bx's ct a/p neg for colitis. ?c scope mild ischemic colitis...?related to dehydration. kayla/dehydration much improved after ivf. hold her diuretic on d/c and close pcp and GI f/u. Korina Swan Jul 12, 2017 07:58 Donny Schwartz MD Jul 12, 2017 15:00
[2017-07-12] MEDS: SODIUM CHLORIDE 0.9% FLUSH 10 ML FLUSH IV FLUSH SCH (09:00)
--- NOTE | 2017-07-12 09:58 | GIPROC ---
[facility] [address] [facility]. [facility] [place], [address] COLONOSCOPY PROCEDURE REPORT EXAM DATE: 07/12/2017 PATIENT NAME: Yvonne Chowdhury MR #: [id number] BIRTHDATE: 1945 ENDOSCOPIST: Mari Lyles MD ORDER #: [id number] MANAGER MATERIALS MANAGEMENT: Ginette Concepcion RN STATUS: inpatient INDICATIONS: The patient is a 72 yr old female here for a colonoscopy due to rectal bleeding , abdominal pain PROCEDURE PERFORMED: Colonoscopy with biopsy MEDICATIONS: None and Per Anesthesia. PREP QUALITY: good PREP TYPE:Other: ESTIMATED BLOOD LOSS: None CONSENT: The patient understands the risks and benefits of the procedure and understands that these risks include, but are not limited to: sedation, allergic reaction, infection, perforation and/or bleeding. Alternative means of evaluation and treatment include, among others: physical exam, x-rays, and/or surgical intervention. The patient elects to proceed with this endoscopic procedure. medical equipment was checked for proper function. Hand hygiene and appropriate measures for infection prevention was taken. After the risks, benefits and alternatives of the procedure were thoroughly explained, Informed consent was verified, confirmed and timeout was successfully executed by the treatment team. A digital exam revealed decreased sphincter tone and revealed external hemorrhoids The Pentax [id number] endoscope was introduced through the anus and advanced to the cecum, which was identified by both the appendix and ileocecal valve. The instrument was then slowly withdrawn as the colon was fully examined. COLON FINDINGS: Colitis involving descending, sigmoid, suggestive of ischemic colitis diminutive polyp cecum-cold biopsy with complete removal biopsies from ascending -random, descending and sigmoid from areas of colitis. Retroflexed views revealed internal hemorrhoids and Retroflexed views revealed small internal hemorrhoids The scope was then completely withdrawn from the patient and the procedure terminated. PROCEDURE WITHDRAWAL TIME:6minutes ADVERSE EVENTS: There were no complications. IMPRESSIONS: 1. Colitis involving descending, sigmoid, suggestive of ischemic colitis diminutive polyp cecum-cold biopsy with complete removal biopsies from ascending -random, descending and sigmoid from areas of colitis 2. Retroflexed views revealed internal hemorrhoids 3. Retroflexed views revealed small internal hemorrhoids 4. Revealed decreased sphincter tone 5. Revealed external hemorrhoids RECOMMENDATIONS: 1. Await biopsy results. Biopsy results will not be ready for 7-10 days. If you don't hear from us in two weeks, call our office for results. 2. Benefiber 2 tsp daily 3. Probiotics from any [employer] or health food store 4. Advance diet-soft ok to [place] home from [facility] 4 weeks RECALL: Return 1 year Colonoscopy Mari Lyles MD eSigned: Mari Lyles MD 07/12/2017 9:58 AM cc: PATIENT NAME: Yvonne Chowdhury MR#: [id number]
[2017-07-12] MEDS: POTASSIUM CHLORIDE 10 MEQ CONTROLLED RELEASE TAB PO SCH (10:20)
[2017-07-12] MEDS: METOPROLOL SUCCINATE 50 MG EXTENDED RELEASE TAB PO SCH (10:21)
[2017-07-12] MEDS: PANTOPRAZOLE SODIUM 40 MG VIAL IV PUSH SCH (10:24)
[2017-07-12 12:00] VITALS: BP 118/67; PULSE 68; RESP 16; TEMP 98.9; O2SAT 100
--- NOTE | 2017-07-12 14:10 | HHI.FF ---
Face to Face Verification Diagnosis: (1) Syncope (2) Diarrhea (3) GI bleed (4) Dehydration Physical Therapy Order: Evaluate and Treat, Improve ambulation, Strength and gait training Home Health Nursing Order: Medical education Signs/symptoms of disease process Nursing assessment with vital signs Chief Pilot Order: To Evaluate: Living conditions/environment, Support services Order: To Provide: Long range planning, Community services I have seen patient Yvonne Chowdhury on 07/12/17. My clinical findings support the need for the requested home health care services because: Limited ability to care for self Need for psychosocial assistance I certify that my clinical findings support that this patient is homebound because: Impaired cognitive ability/safety Need for psychosocial assistance Korina Swan Jul 12, 2017 14:10
--- NOTE | 2017-07-12 14:16 | HHI.DS ---
Discharge Summary Admission Date Jul 11, 2017 at 09:11 Discharge Date: Jul 12, 2017 Admitting Diagnosis nausea and vomiting, acute renal insufficiency, syncope (1) GI bleed ICD Codes: K92.2 - Gastrointestinal hemorrhage, unspecified (2) Dehydration ICD Codes: E86.0 - Dehydration Status: Acute (3) Nausea and vomiting ICD Codes: R11.2 - Nausea with vomiting, unspecified Status: Resolved (4) Abdominal pain ICD Codes: R10.9 - Unspecified abdominal pain Status: Resolved (5) Acute renal insufficiency ICD Codes: N28.9 - Disorder of kidney and ureter, unspecified Status: Acute Consultants Dr. 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 Welsh. Patient initially presented to the emergency department last night after she felt lightheaded and dizzy while walking down her hallway and then fell to the ground. Patient is unsure whether she lost consciousness or not. Patient denies head trauma. Once patient arrived to the emergency department she is complaining of generalized crampy abdominal pain which began on 07/09/2017 associated with 2 episodes of diarrhea and bright red rectal bleeding. Initially patient was going to be discharged from the ER instructed to increase oral hydration and follow-up with PCP. Patient attempted oral hydration she became nauseated and began vomiting. Patient vomited about 6 times yesterday. Patient denies bright red blood in vomitus material or black coffee ground appearance. Patient denies fevers chills shortness of breath or chest pain. CBC/BMP: 07/12/17 0342 07/12/17 0342 Significant Findings Laboratory Tests Test 07/09/17 18:50 07/09/17 18:53 07/10/17 12:56 07/11/17 04:31 White Blood Count 15.6 TH/MM3 (4.0-11.0) 13.7 TH/MM3 (4.0-11.0) 11.5 TH/MM3 (4.0-11.0) Red Blood Count 3.45 MIL/MM3 (4.00-5.30) 3.21 MIL/MM3 (4.00-5.30) 3.01 MIL/MM3 (4.00-5.30) Hematocrit 34.5 % (35.0-46.0) 31.8 % (35.0-46.0) 29.9 % (35.0-46.0) Neutrophils (%) (Auto) 86.0 % (16.0-70.0) 86.5 % (16.0-70.0) 73.2 % (16.0-70.0) Lymphocytes (%) (Auto) 6.7 % (9.0-44.0) 7.6 % (9.0-44.0) Neutrophils # (Auto) 13.4 TH/MM3 (1.8-7.7) 11.8 TH/MM3 (1.8-7.7) 8.4 TH/MM3 (1.8-7.7) Activated Partial Thromboplast Time 22.2 SEC (24.3-30.1) Blood Urea Nitrogen 23 MG/DL (7-18) 19 MG/DL (7-18) Creatinine 1.84 MG/DL (0.50-1.00) 1.60 MG/DL (0.50-1.00) 1.44 MG/DL (0.50-1.00) Random Glucose 117 MG/DL (74-106) Albumin 3.2 GM/DL (3.4-5.0) Sodium Level 135 MEQ/L (136-145) Estimat Glomerular Filtration Rate 33 ML/MIN (>89) 39 ML/MIN (>89) 44 ML/MIN (>89) Troponin I LESS THAN 0.02 NG/ML Urine Bacteria RARE /hpf (NONE) Hemoglobin 10.7 GM/DL (11.6-15.3) 10.1 GM/DL (11.6-15.3) Potassium Level 3.3 MEQ/L (3.5-5.1) 3.3 MEQ/L (3.5-5.1) Platelet Count 147 TH/MM3 (150-450) Chloride Level 109 MEQ/L (98-107) Test 07/12/17 03:42 White Blood Count 12.7 TH/MM3 (4.0-11.0) Red Blood Count 2.90 MIL/MM3 (4.00-5.30) Hemoglobin 9.7 GM/DL (11.6-15.3) Hematocrit 28.9 % (35.0-46.0) Platelet Count 129 TH/MM3 (150-450) Creatinine 1.29 MG/DL (0.50-1.00) Random Glucose 71 MG/DL (74-106) Chloride Level 111 MEQ/L (98-107) Estimat Glomerular Filtration Rate 49 ML/MIN (>89) Imaging Last Impressions Head CT 07/09/171801 Signed Impressions: Service Date/Time: Sunday, July 09, 2017 20:28 - CONCLUSION: 1. No acute intracranial abnormalities. Gamaliel Ward MD Abdomen/Pelvis CT 07/09/171801 Signed Impressions: Service Date/Time: Sunday, July 09, 2017 20:27 - CONCLUSION: 1. No acute findings on abdomen and pelvic CT. Small hiatal hernia. Postop hysterectomy and appendectomy. Gamaliel Ward MD PE at Discharge GENERAL: This is a well-nourished, well-developed patient, in no apparent distress. CARDIOVASCULAR: Regular rate and rhythm RESPIRATORY: Clear to auscultation. Breath sounds equal bilaterally. No wheezes , rales, or rhonchi. GASTROINTESTINAL: Abdomen soft, non-tender, nondistended. Normal active bowel sounds MUSCULOSKELETAL: Extremities without clubbing, cyanosis, or edema. NEURO: Alert & Oriented x4 to person, place, time, situation. 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 Welsh. Patient initially presented to the emergency department last night after she felt lightheaded and dizzy while walking down her hallway and then fell to the ground. Patient is unsure whether she lost consciousness or not. Patient denies head trauma. Once patient arrived to the emergency department she is complaining of generalized crampy abdominal pain which began on 07/09/2017 associated with 2 episodes of diarrhea and bright red rectal bleeding. Initially patient was going to be discharged from the ER instructed to increase oral hydration and follow-up with PCP. Patient attempted oral hydration she became nauseated and began vomiting. Patient vomited about 6 times yesterday. - pt c/o BRB per rectum (07/10/17) - IV protonix - occult stool pending - Hg 11.7 (07/09), 10.7 (07/10), 10.1 (07/11), 9.7 (07/12) - Pt to have EGD/Colonoscopy (07/12/17) - appreciate input from PT. PT recommending home with no PT - DVT prophylaxis with SCDs - supportive care - Colonoscopy 07/12/[address] Lyles: 1. Colitis involving descending, sigmoid, suggestive of ischemic colitis diminutive polyp cecum-cold biopsy with complete removal biopsies from ascending -random, descending and sigmoid from areas of colitis 2. Retroflexed views revealed internal hemorrhoids 3. Retroflexed views revealed small internal hemorrhoids 4. Revealed decreased sphincter tone 5. Revealed external hemorrhoids RECOMMENDATIONS: 1. Await biopsy results. Biopsy results will not be ready for 7-10 days. If you don't hear from us in two weeks, call our office for results. 2. Benefiber 2 tsp daily 3. Probiotics from any [facility] or [employer] food store 4. Advance diet-soft ok to [place] home from [facility] 4 weeks RECALL: Return 1 year Colonoscopy Dehydration - See above Nausea and vomiting Zofran as needed Supportive care IV hydration Abdominal pain CT abdomen and pelvis reviewed and reveals no acute findings on abdomen and pelvis CT. Small hiatal hernia. Postoperative hysterectomy and appendectomy Acute renal insufficiency - improving -Likely secondary to dehydration/GI bleed -IV hydration 07/09 - 07/12 Pt Condition on Discharge: Stable Discharge Disposition: Disch w/ Home Health Serv Discharge Instructions DIET: Follow Instructions for: Soft Diet, High Fiber Diet Activities you can perform: Regular-No Restrictions Follow up Referrals: Gastroenterology - 4 Weeks with Mari Lyles MD PCP Follow-up - [address] Simpson Continued Medications: Metoprolol Succinate ER 24 HR (Toprol XL) 100 Mg Tab 100 MG PO DAILY, #30 TAB 0 Refills Potassium Chloride ER (Klor-Con 10) 10 Meq Tab 10 MEQ PO BID for Electrolyte Replacement, #60 TAB 0 Refills Saline Nasal (Banner Nasal [place]) 0.65% [place] 2 SPRAY EACH NARE DIRECTED PRN for NASAL CONGESTION, #1 BOTTLE 0 Refills Discontinued Medications: Diphenhydramine (Diphenhydramine) 25 Mg Cap 25 MG PO HS for 3 Days, CAP 0 Refills Lisinopril (Lisinopril) 40 Mg Tab 40 MG PO DAILY for Blood Pressure Management, #30 TAB 0 Refills Triamterene-Hydrochlorothiazide (Triamterene-Hydrochlorothiazide) 37.5-25 Mg Cap 1 CAP PO DAILY, #30 CAP 0 Refills Korina Swan Jul 12, 2017 14:16
[2017-07-12 15:28] VITALS: BP 117/64; PULSE 63; RESP 16; TEMP 97.7; O2SAT 99
== END 2017-07-12 16:26 | disposition home or self-care (01) | DRG 394 ==
LOC: NED 17:15 → NEDA 22:36 → NEPGCP 07-10 00:08 → OBSVTOIN 07-11 09:11
PROVIDERS: ADMIT Hospitalist; ATTEND Hospitalist
PROC: 0DBN8ZX Excision of Sigmoid Colon, Via Natural or Artificial Opening Endoscopic, Diagnostic (ICD-10-PCS; 2017-07-12)
PROC: 0DBM8ZX Excision of Descending Colon, Via Natural or Artificial Opening Endoscopic, Diagnostic (ICD-10-PCS; 2017-07-12)
PROC: 0DBH8ZX Excision of Cecum, Via Natural or Artificial Opening Endoscopic, Diagnostic (ICD-10-PCS; 2017-07-12)
PROC: 0DBK8ZX Excision of Ascending Colon, Via Natural or Artificial Opening Endoscopic, Diagnostic (ICD-10-PCS; principal; 2017-07-12 09:16)
DX: K55.039 Acute (reversible) ischemia of large intestine, extent unspecified (principal); N17.9 Acute kidney failure, unspecified; E86.0 Dehydration; I10 Essential (primary) hypertension; I95.1 Orthostatic hypotension; K44.9 Diaphragmatic hernia without obstruction or gangrene; K64.8 Other hemorrhoids; K64.4 Residual hemorrhoidal skin tags; K63.5 Polyp of colon; K21.9 Gastro-esophageal reflux disease without esophagitis; M46.90 Unspecified inflammatory spondylopathy, site unspecified; Z85.42 Personal history of malignant neoplasm of other parts of uterus; Z88.5 Allergy status to narcotic agent; Z90.5 Acquired absence of kidney
CPT/HCPCS: 70450; 74176; 80048; 80053; 81001; 82550; 82552; 83690; 83735; 84484; 85025; 85027; 85610; 85730; 88305; 93005; 96361; 96374; 96375; 96376; C9113; G0378; G8987-GP; G8988-GP; J2405; J3480; J7030; J7120